=== PATIENT | female | born 1940 | race Caucasian/White ===

== ENCOUNTER → 2017-02-19 | Outpatient (CLI) | payer MEDICARE ==
[2017-02-19 18:29] LABS: ALBUMIN 3.7 GM/DL (3.2-5.2); ALBUMIN/GLOBULIN RATIO 1.19 (1.00-1.93); ALKALINE PHOSPHATASE 71 U/L (45-117); ALT/SGPT 22 U/L (12-78); ANION GAP 8 MEQ/L (8-16); AST/SGOT 19 U/L (15-37); BILIRUBIN,TOTAL 0.3 MG/DL (0.2-1.0); BLOOD UREA NITROGEN 11 MG/DL (7-18); CALCIUM LEVEL 8.9 MG/DL (8.8-10.2); CARBON DIOXIDE LEVEL 29 MEQ/L (21-32); CHLORIDE LEVEL 106 MEQ/L (98-107); CHOLESTEROL LEVEL 202 MG/DL (<200); CREATININE FOR GFR 0.57 MG/DL (0.55-1.02); GLOMERULAR FILTRATION RATE > 60.0 (>39); GLUCOSE, FASTING 120 MG/DL (83-110); POTASSIUM SERUM 4.1 MEQ/L (3.5-5.1); SODIUM LEVEL 143 MEQ/L (136-145); TOTAL PROTEIN 6.8 GM/DL (6.4-8.2); TRIGLYCERIDES LEVEL 146 MG/DL (<150)
== END ==
LOC: M WUC 10:54
PROVIDERS: ATTEND Internal Medicine
DX: I10 Essential (primary) hypertension (principal); R73.01 Impaired fasting glucose; E78.00 Pure hypercholesterolemia, unspecified

== ENCOUNTER → 2017-09-11 | Outpatient (CLI) | payer MEDICARE ==
[2017-09-11 12:16] LABS: MEAN CORPUSCULAR HEMOGLOBIN 29.3 pg (27.0-33.0); MEAN CORPUSCULAR HGB CONC 33.1 g/dl (32.0-36.5); MEAN CORPUSCULAR VOLUME 88.5 fl (80.0-96.0); WHITE BLOOD COUNT 5.9 10^3/uL (4.0-10.0)
[2017-09-11 13:20] LABS: ALBUMIN 3.7 GM/DL (3.2-5.2); ALBUMIN/GLOBULIN RATIO 1.16 (1.00-1.93); ALKALINE PHOSPHATASE 64 U/L (45-117); ALT/SGPT 26 U/L (12-78); ANION GAP 6 MEQ/L (8-16); AST/SGOT 18 U/L (15-37); BILIRUBIN,TOTAL 0.4 MG/DL (0.2-1.0); BLOOD UREA NITROGEN 17 MG/DL (7-18); CALCIUM LEVEL 8.8 MG/DL (8.8-10.2); CARBON DIOXIDE LEVEL 31 MEQ/L (21-32); CHLORIDE LEVEL 106 MEQ/L (98-107); CREATININE FOR GFR 0.65 MG/DL (0.55-1.02); GLOMERULAR FILTRATION RATE > 60.0 (>39); GLUCOSE, FASTING 91 MG/DL (83-110); MAGNESIUM LEVEL 2.3 MG/DL (1.8-2.4); POTASSIUM SERUM 4.3 MEQ/L (3.5-5.1); SODIUM LEVEL 143 MEQ/L (136-145); TOTAL PROTEIN 6.9 GM/DL (6.4-8.2)
== END ==
LOC: M WUC 09:52
PROVIDERS: ATTEND Internal Medicine
DX: J30.9 Allergic rhinitis, unspecified (principal); I10 Essential (primary) hypertension; R73.01 Impaired fasting glucose

== ENCOUNTER → 2018-02-25 | Outpatient (CLI) | payer MEDICARE ==
[2018-02-25 13:32] LABS: ALBUMIN 3.5 GM/DL (3.2-5.2); ALBUMIN/GLOBULIN RATIO 1.21 (1.00-1.93); ALKALINE PHOSPHATASE 66 U/L (45-117); ALT/SGPT 29 U/L (12-78); ANION GAP 6 MEQ/L (8-16); AST/SGOT 18 U/L (7-37); BILIRUBIN,TOTAL 0.2 MG/DL (0.2-1.0); BLOOD UREA NITROGEN 9 MG/DL (7-18); CALCIUM LEVEL 8.8 MG/DL (8.8-10.2); CARBON DIOXIDE LEVEL 29 MEQ/L (21-32); CHLORIDE LEVEL 108 MEQ/L (98-107); CHOLESTEROL LEVEL 180 MG/DL (<200); CHOLESTEROL RISK RATIO 4.186 (<5); CREATININE FOR GFR 0.55 MG/DL (0.55-1.30); GLOMERULAR FILTRATION RATE > 60.0 (>39); GLUCOSE, FASTING 115 MG/DL (70-100); HDL CHOLESTEROL 43 MG/DL (>40); LDL CHOLESTEROL 115.6 MG/DL (<100); MAGNESIUM LEVEL 2.2 MG/DL (1.8-2.4); NON-HDL-C 137 MG/DL; POTASSIUM SERUM 4.1 MEQ/L (3.5-5.1); SODIUM LEVEL 143 MEQ/L (136-145); TOTAL PROTEIN 6.4 GM/DL (6.4-8.2); TRIGLYCERIDES LEVEL 107 MG/DL (<150)
[2018-02-25 13:43] LABS: ESTIMATED AVERAGE GLUCOSE 148 MG/DL (60-110); HEMOGLOBIN A1c 6.8 %
[2018-02-25 20:46] LABS: CREATININE, URINE 49.1 MG/DL; MALB URINE SIEMENS 20.8 MG/L; MAU/CREAT RATIO 42.3 MCG/MG (0.0-30.0)
== END ==
LOC: M WUC 10:07
DX: I10 Essential (primary) hypertension (principal); E78.00 Pure hypercholesterolemia, unspecified; R73.01 Impaired fasting glucose
CPT/HCPCS: 83735

== ENCOUNTER → 2018-09-03 | Outpatient (CLI) | payer MEDICARE ==
[2018-09-03 13:16] LABS: HEMATOCRIT 39.1 % (36.0-47.0); MEAN CORPUSCULAR HEMOGLOBIN 29.3 pg (27.0-33.0); MEAN CORPUSCULAR HGB CONC 33.2 g/dl (32.0-36.5); MEAN CORPUSCULAR VOLUME 88.3 fl (80.0-96.0); PLATELET COUNT, AUTOMATED 427 10^3/uL (150-450); RED BLOOD COUNT 4.43 10^6/uL (4.00-5.40); RED CELL DISTRIBUTION WIDTH 14.4 % (11.5-14.5)
[2018-09-03 13:27] LABS: ALBUMIN 3.5 GM/DL (3.2-5.2); ALBUMIN/GLOBULIN RATIO 1.09 (1.00-1.93); ALKALINE PHOSPHATASE 65 U/L (45-117); ALT/SGPT 33 U/L (12-78); ANION GAP 5 MEQ/L (8-16); AST/SGOT 22 U/L (7-37); BILIRUBIN,TOTAL 0.3 MG/DL (0.2-1.0); BLOOD UREA NITROGEN 13 MG/DL (7-18); CALCIUM LEVEL 8.8 MG/DL (8.8-10.2); CARBON DIOXIDE LEVEL 32 MEQ/L (21-32); CHLORIDE LEVEL 107 MEQ/L (98-107); CHOLESTEROL LEVEL 217 MG/DL (<200); CHOLESTEROL RISK RATIO 5.166 (<5); CREATININE FOR GFR 0.73 MG/DL (0.55-1.30); GLOMERULAR FILTRATION RATE > 60.0 (>39); GLUCOSE, FASTING 115 MG/DL (70-100); HDL CHOLESTEROL 42 MG/DL (>40); LDL CHOLESTEROL 135 MG/DL (<100); MAGNESIUM LEVEL 2.3 MG/DL (1.8-2.4); NON-HDL-C 175 MG/DL; SODIUM LEVEL 144 MEQ/L (136-145); TOTAL PROTEIN 6.7 GM/DL (6.4-8.2); TRIGLYCERIDES LEVEL 198 MG/DL (<150)
[2018-09-03 13:36] LABS: TOTAL 25(OH) VITAMIN D 27.8 NG/ML (30.0-100.0)
[2018-09-03 13:55] LABS: ESTIMATED AVERAGE GLUCOSE 134 MG/DL (60-110); HEMOGLOBIN A1c 6.3 %
[2018-09-03 14:31] LABS: MALB URINE SIEMENS 42.2 MG/L
[2018-09-03 14:33] LABS: MAU/CREAT RATIO 37.7 MCG/MG (0.0-30.0)
== END ==
LOC: M WUC 09:38
DX: J30.9 Allergic rhinitis, unspecified (principal); I10 Essential (primary) hypertension; R73.01 Impaired fasting glucose; E78.00 Pure hypercholesterolemia, unspecified; E55.9 Vitamin D deficiency, unspecified
CPT/HCPCS: 83735

== ENCOUNTER → 2019-01-25 | Outpatient (REF) | payer MEDICARE | LOC: M LAB REF 17:36 | PROVIDERS: ATTEND Physician Assistant | DX: N39.0 Urinary tract infection, site not specified (principal) ==

== ENCOUNTER → 2019-03-18 | Outpatient (CLI) | payer MEDICARE ==
[2019-03-18 12:54] LABS: ALT/SGPT 27 U/L (12-78); BILIRUBIN,TOTAL 0.3 MG/DL (0.2-1.0); BLOOD UREA NITROGEN 9 MG/DL (7-18); CALCIUM LEVEL 9.2 MG/DL (8.8-10.2); CARBON DIOXIDE LEVEL 31 MEQ/L (21-32); CHLORIDE LEVEL 106 MEQ/L (98-107); CHOLESTEROL LEVEL 227 MG/DL (<200); CHOLESTEROL RISK RATIO 4.934 (<5); CREATININE FOR GFR 0.64 MG/DL (0.55-1.30); GLOMERULAR FILTRATION RATE > 60.0 (>39); GLUCOSE, FASTING 132 MG/DL (70-100); HDL CHOLESTEROL 46 MG/DL (>40); LDL CHOLESTEROL 124 MG/DL (<100); MAGNESIUM LEVEL 2.2 MG/DL (1.8-2.4); NON-HDL-C 181 MG/DL; POTASSIUM SERUM 3.9 MEQ/L (3.5-5.1); SODIUM LEVEL 143 MEQ/L (136-145); TOTAL PROTEIN 7.3 GM/DL (6.4-8.2); TRIGLYCERIDES LEVEL 284 MG/DL (<150)
[2019-03-18 13:01] LABS: TOTAL 25(OH) VITAMIN D 36.9 NG/ML (30.0-100.0)
[2019-03-18 13:47] LABS: CREATININE, URINE 88.4 MG/DL; MALB URINE SIEMENS 80.7 MG/L; MAU/CREAT RATIO 91.2 MCG/MG (0.0-30.0)
[2019-03-18 16:13] LABS: HEMOGLOBIN A1c 6.6 %
== END ==
LOC: M WUC 09:59
PROVIDERS: ATTEND Internal Medicine
DX: I10 Essential (primary) hypertension (principal); R73.01 Impaired fasting glucose; M85.80 Other specified disorders of bone density and structure, unspecified site; E78.00 Pure hypercholesterolemia, unspecified

== ENCOUNTER → 2019-04-14 | Outpatient (CLI) | payer MEDICARE ==
--- NOTE | 2019-04-14 13:42 | REPMRS ---
Patient History The patient states she has not had a clinical breast exam in over a year. No known family history of cancer. Benign stereotactic core biopsy of the left breast, September 12, 2011. Benign excisional biopsy of the right breast, 1980. No Hormone Replacement Therapy 3D TOMOSYNTHESIS WAS PERFORMED. Digital Woman Screen Mammo: April 14, 2019 - Exam #: [id number] Bilateral CC and MLO view(s) were taken. Technologist: Teri King, Technologist Prior study comparison: September 26, 2017, digital woman screen mammo performed at [facility] [employer] to [employer]. January 05, 2016, digital woman screen mammo performed at [facility]. FINDINGS: There are scattered fibroglandular densities. There has been no change in the appearance of the mammogram from the prior studies. There is a mild amount of residual fibroglandular tissue which is fairly symmetric. There is no interval development of dominant mass, architectural distortion, or clustered microcalcification suggestive of malignancy. Assessment: BI-RADS/ACR category 1 mammogram. Negative Mammogram. Recommendation Routine screening mammogram in 1 year (for women over age 40). This mammogram was interpreted with the aid of an FDA-approved computer-aided dectection system. Electronically Signed By: Mitchell Berman MD 04/14/19 [id number]
--- NOTE | 2019-04-17 14:36 | DEXA ---
AP SPINE L1 - L4 0.908 -2.3 -0.5 LT FEMUR TOTAL 0.740 -2.1 -0.2 LT NECK 0.643 -2.8 -0.8 RT FEMUR TOTAL 0.749 -2.1 -0.2 RT NECK 0.667 -2.7 -0.6 TOTAL BODY TOTAL OTHER COMMENTS: There is low bone density of the spine. 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 The decreased density of the spine does represent a significant change. The decreased density of the left hip does not represent a significant change. The decreased density of the right hip does represent a significant change. The density of the spine has decreased 11.5% since the initial exam on 11/30/2004. The spine density has decreased 5.4% since the most recent exam on 01/05/2016. The density of the left hip has decreased 13.8% since the initial exam on 11/30/2004. The density of the left hip has decreased 1.3% since the most recent exam on 01/05/2016. The density of the right hip has decreased 12.3% since the initial exam on 11/30/2004. The density of the right hip has decreased 3.2% since the most recent exam on 01/05/2016. FOLLOW-UP: Recommendation for the next bone density exam: 2 years. JOHANA
== END ==
LOC: M WHC 12:53
PROVIDERS: ATTEND Internal Medicine
DX: Z12.31 Encounter for screening mammogram for malignant neoplasm of breast (principal); M85.80 Other specified disorders of bone density and structure, unspecified site

== ENCOUNTER → 2019-09-21 | Outpatient (CLI) | payer MEDICARE ==
[2019-09-21 13:00] LABS: HEMATOCRIT 39.8 % (36.0-47.0); HEMOGLOBIN 13.4 g/dl (12.0-15.5); MEAN CORPUSCULAR HEMOGLOBIN 30.6 pg (27.0-33.0); MEAN CORPUSCULAR HGB CONC 33.7 g/dl (32.0-36.5); MEAN CORPUSCULAR VOLUME 90.9 fl (80.0-96.0); PLATELET COUNT, AUTOMATED 388 10^3/uL (150-450); RED BLOOD COUNT 4.38 10^6/uL (4.00-5.40); WHITE BLOOD COUNT 7.2 10^3/uL (4.0-10.0)
[2019-09-21 13:12] LABS: ALBUMIN 3.5 GM/DL (3.2-5.2); ALT/SGPT 22 U/L (12-78); BILIRUBIN,TOTAL 0.3 MG/DL (0.2-1.0); BLOOD UREA NITROGEN 14 MG/DL (7-18); CARBON DIOXIDE LEVEL 30 MEQ/L (21-32); CHLORIDE LEVEL 105 MEQ/L (98-107); CHOLESTEROL LEVEL 226 MG/DL (<200); CHOLESTEROL RISK RATIO 4.708 (<5); GLOMERULAR FILTRATION RATE > 60.0 (>39); GLUCOSE, FASTING 107 MG/DL (70-100); HDL CHOLESTEROL 48 MG/DL (>40); LDL CHOLESTEROL 145 MG/DL (<100); MAGNESIUM LEVEL 2.2 MG/DL (1.8-2.4); NON-HDL-C 178 MG/DL; POTASSIUM SERUM 3.6 MEQ/L (3.5-5.1); SODIUM LEVEL 142 MEQ/L (136-145); TOTAL PROTEIN 6.5 GM/DL (6.4-8.2); TRIGLYCERIDES LEVEL 167 MG/DL (<150)
[2019-09-21 13:35] LABS: MALB URINE SIEMENS 45.7 MG/L; MAU/CREAT RATIO 30.2 MCG/MG (0.0-30.0)
[2019-09-21 13:39] LABS: HEMOGLOBIN A1c 6.3 %
== END ==
LOC: M WUC 10:25
PROVIDERS: ATTEND Internal Medicine
DX: I10 Essential (primary) hypertension (principal); E78.00 Pure hypercholesterolemia, unspecified; R73.01 Impaired fasting glucose

== ENCOUNTER → 2020-03-26 | Outpatient (CLI) | payer MEDICARE ==
[2020-03-26 13:44] LABS: ALBUMIN 3.6 GM/DL (3.2-5.2); ALT/SGPT 27 U/L (12-78); BILIRUBIN,TOTAL 0.3 MG/DL (0.2-1.0); BLOOD UREA NITROGEN 8 MG/DL (7-18); CALCIUM LEVEL 8.7 MG/DL (8.8-10.2); CARBON DIOXIDE LEVEL 29 MEQ/L (21-32); CHLORIDE LEVEL 107 MEQ/L (98-107); CHOLESTEROL LEVEL 211 MG/DL (<200); CHOLESTEROL RISK RATIO 4.586 (<5); CREATININE FOR GFR 0.64 MG/DL (0.55-1.30); GLOMERULAR FILTRATION RATE > 60.0 (>39); GLUCOSE, FASTING 119 MG/DL (70-100); HDL CHOLESTEROL 46 MG/DL (>40); LDL CHOLESTEROL 132 MG/DL (<100); MAGNESIUM LEVEL 2.2 MG/DL (1.8-2.4); NON-HDL-C 165 MG/DL; POTASSIUM SERUM 4.1 MEQ/L (3.5-5.1); SODIUM LEVEL 142 MEQ/L (136-145); TOTAL PROTEIN 6.8 GM/DL (6.4-8.2); TRIGLYCERIDES LEVEL 167 MG/DL (<150)
[2020-03-26 13:56] LABS: HEMOGLOBIN A1c 6.8 %
== END ==
LOC: M WUC 09:02
PROVIDERS: ATTEND Internal Medicine
DX: I10 Essential (primary) hypertension (principal); E78.00 Pure hypercholesterolemia, unspecified; R73.01 Impaired fasting glucose

== ENCOUNTER → 2020-10-03 | Outpatient (CLI) | payer MEDICARE ==
[2020-10-03 14:14] LABS: HEMATOCRIT 42.3 % (36.0-47.0); HEMOGLOBIN 13.9 g/dl (12.0-15.5); MEAN CORPUSCULAR HEMOGLOBIN 29.8 pg (27.0-33.0); MEAN CORPUSCULAR HGB CONC 32.9 g/dl (32.0-36.5); MEAN CORPUSCULAR VOLUME 90.8 fl (80.0-96.0); PLATELET COUNT, AUTOMATED 456 10^3/uL (150-450); RED BLOOD COUNT 4.66 10^6/uL (4.00-5.40)
[2020-10-03 15:06] LABS: ALBUMIN 3.5 GM/DL (3.2-5.2); ALT/SGPT 30 U/L (12-78); BILIRUBIN,TOTAL 0.3 MG/DL (0.2-1.0); BLOOD UREA NITROGEN 12 MG/DL (7-18); CARBON DIOXIDE LEVEL 29 MEQ/L (21-32); CHLORIDE LEVEL 107 MEQ/L (98-107); CHOLESTEROL LEVEL 222 MG/DL (<200); CHOLESTEROL RISK RATIO 4.625 (<5); GLOMERULAR FILTRATION RATE > 60.0 (>39); GLUCOSE, FASTING 123 MG/DL (70-100); HDL CHOLESTEROL 48 MG/DL (>40); LDL CHOLESTEROL 145 MG/DL (<100); MAGNESIUM LEVEL 2.1 MG/DL (1.8-2.4); NON-HDL-C 174 MG/DL; POTASSIUM SERUM 3.6 MEQ/L (3.5-5.1); SODIUM LEVEL 143 MEQ/L (136-145); TOTAL PROTEIN 6.7 GM/DL (6.4-8.2); TRIGLYCERIDES LEVEL 145 MG/DL (<150)
[2020-10-03 15:08] LABS: TOTAL 25(OH) VITAMIN D 62.9 NG/ML (30.0-100.0)
[2020-10-03 15:44] LABS: CREATININE, URINE 60.8 MG/DL; MALB URINE SIEMENS 41.6 MG/L; MAU/CREAT RATIO 68.4 MCG/MG (0.0-30.0)
== END ==
LOC: M WUC 09:13
PROVIDERS: ATTEND Internal Medicine
DX: I10 Essential (primary) hypertension (principal); R73.01 Impaired fasting glucose; E55.9 Vitamin D deficiency, unspecified; E78.00 Pure hypercholesterolemia, unspecified; J30.9 Allergic rhinitis, unspecified

== ENCOUNTER 2020-11-26 12:13 | Emergency (ER) | payer MEDICARE ==
[~2020-11-26] VITALS: Ht 165.1 cm; Wt 61.4 kg
[2020-11-26] MEDS ORDERED: BENA20TA8 (12:26)
[2020-11-26] MEDS ORDERED: POTA20TA6 (12:26)
[2020-11-26] MEDS ORDERED: AMLO1TAB25 (12:26)
[2020-11-26] MEDS ORDERED: NS 1,000 ML IV SCH (12:36)
[2020-11-26 12:47] LABS: BASO # 0.1 10^3/uL (0.0-0.2); BASO % 0.8 % (0.0-1.0); EOS # 0.1 10^3/uL (0.0-0.5); EOS % 1.2 % (0.0-3.0); HEMATOCRIT 44.4 % (36.0-47.0); HEMOGLOBIN 14.4 g/dl (12.0-15.5); LYMPH # 3.7 10^3/uL (1.5-5.0); LYMPH % 47.9 % (24.0-44.0); MEAN CORPUSCULAR HEMOGLOBIN 29.1 pg (27.0-33.0); MEAN CORPUSCULAR HGB CONC 32.4 g/dl (32.0-36.5); MEAN CORPUSCULAR VOLUME 89.7 fl (80.0-96.0); MONO # 0.6 10^3/uL (0.0-0.8); MONO % 8.2 % (0.0-5.0); NEUTROPHILS # 3.2 10^3/uL (1.5-8.5); NEUTROPHILS % 41.4 % (36.0-66.0); PLATELET COUNT, AUTOMATED 446 10^3/uL (150-450); RED BLOOD COUNT 4.95 10^6/uL (4.00-5.40); WHITE BLOOD COUNT 7.7 10^3/uL (4.0-10.0)
[2020-11-26] MEDS ORDERED: ISOVUE-370 76% 100ML VIAL As Ordered ONE (13:08)
[2020-11-26 13:23] LABS: ALBUMIN 3.8 GM/DL (3.2-5.2); ALT/SGPT 23 U/L (12-78); BILIRUBIN,DIRECT < 0.1 MG/DL (0.0-0.2); BILIRUBIN,TOTAL 0.4 MG/DL (0.2-1.0); LIPASE 143 U/L (73-393); TOTAL PROTEIN 7.3 GM/DL (6.4-8.2)
--- NOTE | 2020-11-26 13:40 | REP ---
INDICATION: abd pian right. COMPARISON: None TECHNIQUE: Axial contrast-enhanced images from the lung bases to the pubic symphysis using 100 cc Isovue 370 intravenous contrast material. Coronal and sagittal reformations obtained. This CT examination was performed using the following dose reduction techniques: Automated exposure control, adjustment of mA and/or kv according to the patient's size, and the use of iterative reconstruction technique. FINDINGS: Lung bases are clear. Liver, spleen, pancreas, left adrenal glands and bilateral kidneys are normal. 1.6 cm enhancing lesion in the right adrenal gland is nonspecific. Cholelithiasis noted without evidence for acute cholecystitis. The enteric system is without obstruction or acute inflammatory process. Scattered colonic diverticula noted without acute diverticulitis. Normal cecum and terminal ileum identified in the right lower quadrant. Pelvis demonstrates normal bladder and evidence for prior hysterectomy. No ascites. No free air. No intraperitoneal or retroperitoneal adenopathy. Abdominal aorta and vasculature appear normal. Musculoskeletal structures are intact and without acute osseous abnormality. IMPRESSION: 1. No acute abdominopelvic pathology appreciated. 2. 1.6 cm right adrenal lesion likely atypical adenoma. Consider outpatient follow-up pre and postcontrast MRI or CT of the abdomen for confirmation. 3. Cholelithiasis without acute cholecystitis. Diverticulosis without acute diverticulitis. <Electronically signed by Aren Vickers > 11/26/20 [id number]
[2020-11-26] MEDS ORDERED: POTASSIUM CHLORIDE 10 MEQ SR TABLET PO ONE (13:45)
[2020-11-26 14:30] VITALS: BP 165/85
--- NOTE | 2020-11-26 14:41 | ECGEPIP ---
[facility] - ED Test Date: 2020-11-26 Pat Name: DAVIDA BROWN Department: Room: - Gender: Female Admitting Supervisor: tarun : 1940 Requested By: Cristela Moran Order Number: [id number] Reading MD: Cristela Moran Measurements Intervals [place] Rate: 74 P: 52 MA: 164 QRS: -46 QRSD: 170 T: 109 QT: 468 QTc: 522 Interpretive Statements SINUS RHYTHM MARKED LEFT AXIS DEVIATION LEFT BUNDLE BRANCH BLOCK No prior Electronically Signed on 11-26-2020 14:41:12 EST by Cristela Moran
--- NOTE | 2020-11-27 08:58 | ED PDOC ---
Post-Departure Follow-Up radiology reprot faxed to Cristela De La Rosa MD Nov 27, 2020 08:58
== END 2020-11-26 14:39 | disposition home or self-care (01) ==
LOC: M ED 12:13
DX: E87.6 Hypokalemia (principal); E27.9 Disorder of adrenal gland, unspecified; K80.20 Calculus of gallbladder without cholecystitis without obstruction; R94.31 Abnormal electrocardiogram [ECG] [EKG]; I10 Essential (primary) hypertension; Z88.6 Allergy status to analgesic agent; Z88.8 Allergy status to other drugs, medicaments and biological substances; Z79.899 Other long term (current) drug therapy
CPT/HCPCS: 74177; 80047; 80076; 83690; 85025; 93005; 96360; 96361; 99284; Q9967

== ENCOUNTER → 2020-12-19 | Outpatient (REF) | payer MEDICARE ==
[~2020-12-19] MED LIST: AMLO1TAB25 PO; BENA20TA8 PO; POTA20TA6 PO
== END ==
LOC: M SFHCPLAZ 08:54
PROVIDERS: ATTEND Internal Medicine
DX: D35.01 Benign neoplasm of right adrenal gland (principal); I10 Essential (primary) hypertension

== ENCOUNTER → 2020-12-19 | Outpatient (CLI) | payer MEDICARE ==
[~2020-12-19] MED LIST changes: +AMLO1TAB25; -AMLO1TAB25 PO; +BENA20TA8; -BENA20TA8 PO; +POTA20TA6; -POTA20TA6 PO
[2020-12-19 10:41] LABS: BLOOD UREA NITROGEN 9 MG/DL (7-18); CALCIUM LEVEL 9.2 MG/DL (8.8-10.2); CARBON DIOXIDE LEVEL 30 MEQ/L (21-32); CHLORIDE LEVEL 105 MEQ/L (98-107); CREATININE FOR GFR 0.62 MG/DL (0.55-1.30); GLOMERULAR FILTRATION RATE > 60.0 (>39); GLUCOSE, FASTING 129 MG/DL (70-100); MAGNESIUM LEVEL 2.1 MG/DL (1.8-2.4); POTASSIUM SERUM 3.4 MEQ/L (3.5-5.1); SODIUM LEVEL 143 MEQ/L (136-145)
== END ==
LOC: M LAB 09:24
PROVIDERS: ATTEND Internal Medicine
DX: D35.01 Benign neoplasm of right adrenal gland (principal); I10 Essential (primary) hypertension
CPT/HCPCS: 36415; 80048; 82088; 83735; G0463

== ENCOUNTER → 2020-12-20 | Outpatient (CLI) | payer MEDICARE ==
[~2020-12-20] MED LIST changes: -AMLO1TAB25; +AMLO1TAB25 PO; -BENA20TA8; +BENA20TA8 PO; -POTA20TA6; +POTA20TA6 PO
== END ==
LOC: M LAB 10:49
PROVIDERS: ATTEND Internal Medicine
DX: D35.01 Benign neoplasm of right adrenal gland (principal)

== ENCOUNTER → 2021-01-12 | Outpatient (CLI) | payer MEDICARE | LOC: M LABSMTC 11:02 | PROVIDERS: ATTEND Anesthesiology | DX: Z01.812 Encounter for preprocedural laboratory examination (principal); Z20.822 Contact with and (suspected) exposure to COVID-19 ==

== ENCOUNTER 2021-01-17 08:00 | Day surgery (SDC) | payer MEDICARE ==
[~2021-01-17] VITALS: Ht 165.1 cm; Wt 58.5 kg
[~2021-01-17 08:00] MED LIST changes: +LR 1,000 ML IV ONE; +ceFAZolin SOD 1 GM in D5W MINI-BAG PLUS 50 ML IV ONE
--- OUTSIDE RECORDS SUMMARY | 2021-01-17 08:05 | CCD ---
Author Author [facility] Organization [facility] Address Unknown Phone Unavailable Care Team Providers Care Bar Machine Operator Name Role Phone Kelvin Molina Unavailable PROBLEMS Type Condition ICD9-CM Code [id number] Code Onset Dates Condition S tatus SNOMED Code Notes Problem Elevated fasting blood sugar R73.01 Active 390 [id number] Fasting glucose has been variably elevated and most recently was 107 with a hemoglobin A1c of 6.3% in August 2019, 119 with a hemoglobin A1c of 6.8% in March 2020, 123 with a hemoglobin A1c of 6% in September 2020. She will be working on dietary restriction to better achieve glucose control. Urine microalbumin was borderline elevated at 30 in August 2019, 68 in September 2020. Consider adding metformin in the future. Problem Osteoarthritis M19.90 Active [id number] Has min or symptoms. She takes Tylenol arthritis 2 pills twice daily. Problem Osteopenia M85.80 Active 879056243 Her last DE XA was in March 2019 and revealed osteopenia of the spine with a declining T score of -2.3 in the spine. She is treating that with weight bearing exercise and vitamin D supplementation. I'm holding off on starting bisphosphonate therapy. She does not fall. Problem Hypercholesterolemia E78.00 Active 69307878 He r lipid profile is intermittently abnormal. She has a more elevated LDL of 145 in September 2020.. She is working on diet and exercise in that regard. 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 She had an injection in the past and can always pursue that in the future. Problem Left bundle branch block I44.7 Active 0170763 2 She had left bundle branch block diagnosed in 1997 on a preoperative and this is again seen on EKG in November 2020. An echocardiogram was unremarkable in 1997 but I have ordered another in anticipation of her gallbladder surgery in December 2020. Problem Allergic rhinitis J30.9 Active 70622473 Advis ed to continue to use her intranasal steroid or uuwt-wjy-gbmloua antihistamine seasonally. Problem Hypertension I10 Active 77593353 She is on benzapril and amlodipine. HCTZ was stopped in 02/2014. She still requires potassium supplementation however. Her blood pressure has been intermittently elevated here is normal today. She has a home blood pressure cuff and she will continue home monitoring. Blood pressure is reasonably controlled today, although was quite elevated in the emergency department when she was uncomfortable. I've ordered another echocardiogram because of her known left bundle branch block and soft systolic murmur, in anticipation of her gallbladder surgery in December 2020. Problem Vitamin D deficiency E55.9 Active 55089893 Sh latoya is off Drisdol. Vitamin D level was most recently 63 in September 2020 on her current level of qnvw-upg-qnsprug vitamin D supplementation. ALLERGIES Allergen (clinical drug ingredient) Drug/Non Drug Allergy do cumented on EMR Reaction Allergy Type Onset Date Status Codeine Phosphate (For Allergies Use Only) Nausea/Vomiting Drug Allergy Active Nausea/Vomiting Drug Allergy Active meperidine Demerol([facility] Code:[address]-93) Nausea/Vomiting Drug Aller gy Active ENCOUNTERS from 1940 to 2020-12-21 Encounter Location Date Provider Diagnosis [address] [address] Nov, Kelvin Molina Pre-op evaluation Z01.818 ; History of c holecystitis Z87.19 ; Hypertension I10 ; Adenoma of right adrenal gland D35.01 and Left bundle branch block I44.7 IMMUNIZATIONS Vaccine Route Administration Date Status Influenza (18 yrs & older) Flublok IM Intramuscular Sep 22, 2019 Administered Influenza (18 yrs & older) Flublok IM Intramuscular Sep 09, 2018 Administered Influenza (High Dose 65 & up) IM Intramuscular Sep 13, 2017 A dministered Influenza (High Dose 65 & up) IM Intramuscular Aug 29, 2016 A dministered Pneumococcal Adult 0.5mL (Pneumovax 23) Unknown 2007 Administered Pneumococcal 0.5mL (Prevnar 13) IM Intramuscular Nov 29, 2015 Administered Influenza (Pharmacy Given) Unknown Jul 26, 2020 Admin istered TD Adult 0.5mL (Tetanus) Unknown Aug 25, 2010 Adminis tered Influenza (6mo & up) Fluzone Unknown Sep 16, 2015 Adm inistered Influenza (6mo & up) Fluzone Unknown Sep 09, 2014 Adm inistered SOCIAL HISTORY Tobacco Use: Social History Observation Description Date Details (start date - stop date) Never Smoker Sex Assigned At : Social History Observation Description Sex Assigned At Unknown Education: Question Answer Notes Level of Education: Grade School 8 th grade Audit Question Answer Notes Total Score: 0 Interpretation: Alcohol Education Language: Question Answer Notes Languages spoken: Chilean Lutheran: Question Answer Notes Lutheran 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 No Have you ever had an STD? No Drug and Alcohol Question Answer Notes Total Score: 0 Interpretation: No problems reported Alcohol Screening: Question Answer Notes Did you have a drink containing alcohol in the past year? No Points 0 Interpretation Negative Tobacco Use: Question Answer Notes Are you a: never smoker never smoker REASON FOR REFERRAL No Information VITAL SIGNS Weight 135.0 lbs Nov, Height 65.0 in Nov, BMI 22.46 kg/m2 Nov, Heart Rate 91 /min Nov, Respiratory Rate 18 /min Nov, Temperature 98.4 degrees Fahrenheit Nov, Oximetry 98% Nov, Blood pressure systolic 122 mm Hg Nov, Blood pressure diastolic 80 mm Hg Nov, MEDICATIONS Medication SIG (Take, Route, Frequency, Duration) Notes Start Da te End Date Status AmLODIPine Besylate 10 mg 1 tablet Orally Once a day for 90 Active Benazepril HCl 20 mg 1 tablet Orally Once a day for 90 Active Klor-Con M20 20 MEQ as directed Orally Take 1 ta blet daily on /Sat/Sat, 2 tablets daily on // for 90 days Active Calcium + D 600-200 MG-UNIT 1 tablet with food Orally Once a day for 30 day(s) Active Vitamin D 2000 UNIT as directed Orally daily Feb, Active PROCEDURES No Information RESULTS Component Value Reference Range Basic Metabolic Profile (BMP) Reviewed date:12/19/2020 17:02:52 Interpretation: Performing Lab:[facility] [address] [address] , ,[place] [address] GLUCOSE, FASTING 129 70-100 BLOOD UREA NITROGEN 9 7-18 CREATININE FOR GFR 0.62 0.55-1.30 GLOMERULAR FILTRATION RATE > 60.0 >39 SODIUM LEVEL 143 136-145 POTASSIUM SERUM 3.4 3.5-5.1 CHLORIDE LEVEL 105 98-107 CARBON DIOXIDE LEVEL 30 21-32 CALCIUM LEVEL 9.2 8.8-10.2 MAGNESIUM LEVEL Reviewed date:12/19/2020 16:44:51 Interpretation: Performing Lab:[facility] [id number] , ,[place] [address] MAGNESIUM LEVEL 2.1 1.8-2.4 REASON FOR VISIT Pre-operative clearance for laproscopic cholecystectomy preformed by Dr. Silsa messer at [facility] on January 17, 2021 under anesthesia. DX: K80.20 MEDICAL (GENERAL) HISTORY Type Description Date Medical History Hypercholesterolemia Medical History Vitamin D deficiency Medical History Elevated fasting blood sugar Medical History Osteopenia Medical History Left bundle branch block Medical History Osteoarthritis Medical History Allergic rhinitis Surgical History breast lump removed benign right age 31 Surgical History tonsillectomy 1972 Surgical History Breast biopsy-Dr Linares 03/15/1973 Surgical History Bladder suspension 1976 Surgical History rotator cuff tear repair right 1980 Surgical History sinus surgery 1981 Surgical History partial hysterectoomy-uterus only 1986 Surgical History carpel tunnel surgery to rig ht hand--had ulnar nerve transposition at that time 03/15/1998 Surgical History hemorrhoid surgery 03/11/1996 Surgical History sinus surgery (Endoscopic Sinus Surgery [facility]SS) 02/21/1999 Surgical History colonoscopy no polyps 2006 Surgical History CAt 4 mammogram calcifications benign bi opsy 2010 Surgical History anterior wall repair-vagina 03/15/2014 Surgical History Colonoscopy 2013 Surgical History Lap cholecystectomy-Dr. Ch 021 Hospitalization History [facility] ED-Abdominal pain 11/26/2020 Goals Section No Information Health Concerns No Information MEDICAL EQUIPMENT No Information MENTAL STATUS No Information FUNCTIONAL STATUS No Information ASSESSMENTS Encounter Date Diagnosis Assessment Notes Treatment Notes Treatm ent Clinical Notes Nov, Pre-op evaluation (ICD-10 - Z01.818) On the basis of this preoperative evaluation, including interview and physical examination, preoperative testing, and my knowledge of the patient, I find the patient to be medically optimized for the forthcoming surgical procedure, provided her echocardiogram is unremarkable. Risk for cardiac morbidity and mortality for this procedure is less than 5%, in this moderate risk patient who will be undergoing a moderate risk procedure. The patient has no major, minor or intermediate clinical predictors of increased perioperative cardiovascular risk. Medications to hold prior to surgery: None, from my standpoint. There is no history suggestive of sleep apnea. I've ordered an echocardiogram to reassess her left bundle branch block and heart murmur Nov, History of cholecystitis (ICD-10 - Z87.1 9) She had right upper quadrant pain in early November [address]. [address] scan showed cholelithiasis without evidence for acute cholecystitis, she probably did have an episode of cholecystitis. She is now scheduled for laparoscopic cholecystectomy, as her gallbladder has multiple stones. Nov, Hypertension (ICD-10 - I10) She is on be nzapril and amlodipine. HCTZ was stopped in 02/2014. She still requires potassium supplementation however. Her blood pressure has been intermittently elevated here is normal today. She has a home blood pressure cuff and she will continue home monitoring. Blood pressure is reasonably controlled today, although was quite elevated in the emergency department when she was uncomfortable. I've ordered another echocardiogram because of her known left bundle branch block and soft systolic murmur, in anticipation of her gallbladder surgery in December 2020. Nov, Adenoma of right adrenal gland (ICD-10 - D35.01) She has an incidentally discovered right adrenal adenoma on CT scan. Because of her low potassium level and hypertension, I have ordered an evaluation for hyperaldosteronism. Nov, Left bundle branch block (ICD-10 - I44.7 ) She had left bundle branch block diagnosed in 1997 on a preoperative and this is again seen on EKG in November 2020. An echocardiogram was unremarkable in 1997 but I have ordered another in anticipation of her gallbladder surgery in December 2020. PLAN OF TREATMENT Medication Medication Name Sig Start Date Stop Date Klor-Con M20 20 MEQ as directed Orally Take 1 ta blet daily on /Sat/Sat, 2 tablets daily on // for 90 days Treatment Notes Test Name Order Date ALDOSTERONE 2020-12-21 ALDOSTERONE/RENIN RATIO 2020-12-21 Next Appt Details Keep scheduled appointment Reason: Provider Name:Kelvin Molina, 2021 10 :30:00 AM, [address] [place], [address], Insurance Providers Payer Name Payer Address Payer Phone Insured Name Patient Relati onship to Insured Coverage Start Date Coverage End Date [employer] HE[employer] CARE OPTIONS [facility] CLAIM DIV [address] [facility] [address] DAVIDA BROWN self MEDICARE Part A and B [address] [facility] [address] [phone] DAVIDA RBOWN self
--- OUTSIDE RECORDS SUMMARY | 2021-01-17 08:05 | CCD | Continuity of Care Document ---
Author Author Vanesa CH MD Organization Unknown Address [address] [address] Phone [phone] Care Team Providers Care Forensic Technician Name Role Phone Kelvin Molina M.D. AUTM [phone] Problems Active Problems Provider Date Essential hypertension Silas Ch JR, MD Onset: 12/07/19 21 Social History Type Date Description Comments Sex Unknown ETOH Use Rarely Tobacco Use Start: Unknown Denies Smoking Recreational Drug Use Denies Drug Use Allergies, Adverse Reactions, Alerts Active Allergies Reaction Severity Comments Date Demerol VOMITING 12/07/2020 Medications Active Medications SIG Qnty Indications Ordering Provide r Date Amlodipine Besylate 10mg Tablets 1 qd Unknown Benazepril HCL 20mg Tablets 1 qd Unknown Potassium Chloride Olivia ER 20Meq Tablets ER 1 qd Unknown Vitamin D3 25mcg (1000 Ut) Tablets 1 by mouth qd Unknown Probiotic Capsules 1 by mouth every day Unknown Calcium 600 600mg Tablets 1 q d Unknown Immunizations Description No Information Available Vital Signs Date Vital Result Comment 12/07/2020 1:10pm BP Systolic 155 mmHg BP Diastolic 90 mmHg Height 65 inches 5'5" Weight 132.50 lb BMI (Body Mass Index) 22.0 kg/m2 [place] Body Weight 125 lb Weight 60.102 kg BSA (Body Surface Area) 1.66 m2 Results Description No Information Available Procedures Description No Information Available Medical Devices Description No Information Available Encounters Description No Information Available Assessments Description No Information Available Plan of Treatment No Information Available Functional Status Description No Information Available Mental Status Description No Information Available Referrals Description No Information Available
--- OUTSIDE RECORDS SUMMARY | 2021-01-17 08:05 | CCD ---
Author Author [facility] Organization [facility] Address Unknown Phone Unavailable Care Team Providers Care Cleaning Attendant Name Role Phone Kelvin Molina Unavailable PROBLEMS Type Condition ICD9-CM Code ATR17-ER Code Onset Dates Condition S tatus SNOMED Code Notes Problem Elevated fasting blood sugar R73.01 Active 390 572593 Fasting glucose has been variably elevated and [...] in the future. Problem Osteoarthritis M19.90 Active 689812618 Has min or symptoms. She takes Tylenol arthritis 2 pills twice daily. Problem Osteopenia M85.80 Active 977513029 Her last DE XA was in March 2019 and revealed osteopenia of the spine with a declining T score of -2.3 in the spine. She is treating that with weight bearing exercise and vitamin D supplementation. I'm holding off on starting bisphosphonate therapy. She does not fall. Problem Hypercholesterolemia E78.00 Active 07718386 He r lipid profile is intermittently abnormal. She has a more elevated LDL of 145 in September 2020.. She is working on diet and exercise in that regard. 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 She had an injection in the past and can always pursue that in the future. Problem Left bundle branch block I44.7 Active 1832538 2 She had left bundle branch block diagnosed in 1997 on a preoperative and this is again seen on EKG in November 2020. An echocardiogram was unremarkable in 1997 but I have ordered another in anticipation of her gallbladder surgery in December 2020. Problem Allergic rhinitis J30.9 Active 93796694 Advis ed to continue to use her intranasal steroid or simq-sla-yyohkvl antihistamine seasonally. Problem Hypertension I10 Active 88810891 She is on benzapril and amlodipine. HCTZ [...] 2020. Problem Vitamin D deficiency E55.9 Active 95376681 Sh e is off Drisdol. Vitamin D level was most recently 63 in September 2020 on her current level of ywpl-srt-ynqxdtq vitamin D supplementation. ALLERGIES Allergen (clinical drug ingredient) Drug/Non Drug Allergy do cumented on EMR Reaction Allergy Type Onset Date Status Codeine Phosphate (For Allergies Use Only) Nausea/Vomiting Drug Allergy Active Nausea/Vomiting Drug Allergy Active meperidine Demerol([facility] Code:[address]-48) Nausea/Vomiting Drug Aller gy Active ENCOUNTERS from 1940 to 2020-12-19 Encounter Location Date Provider Diagnosis [address] [address] Nov, [facility] IMMUNIZATIONS Vaccine Route Administration Date Status Influenza (18 yrs & older) Flublok IM Intramuscular Sep 09, 2018 Administered Influenza (High Dose 65 & up) IM Intramuscular Sep 13, 2017 A dministered Influenza (High Dose 65 & up) IM Intramuscular Aug 29, 2016 A dministered Influenza (Pharmacy Given) Unknown Jul 26, 2020 Admin istered Pneumococcal Adult 0.5mL (Pneumovax 23) Unknown 2007 Administered Pneumococcal 0.5mL (Prevnar 13) IM Intramuscular Nov 29, 2015 Administered Influenza (18 yrs & older) Flublok IM Intramuscular Sep 22, 2019 Administered TD Adult 0.5mL (Tetanus) Unknown Aug 25, [...] Education Language: Question Answer Notes Languages spoken: Yi Restoration: Question Answer Notes Restoration 08 Synagogue rastafarian Sexual Hx: Question Answer Notes Had sex [...] REASON FOR REFERRAL No Information VITAL SIGNS No information MEDICATIONS Medication SIG (Take, Route, Frequency, Duration) Notes Start Da te End Date Status AmLODIPine Besylate 10 mg 1 tablet Orally Once a day for 90 Active Benazepril HCl 20 mg 1 tablet Orally Once a day for 90 Active Klor-Con M20 20 MEQ as directed Orally Take 1 ta blet daily on /Sat/Sat, 2 tablets daily on / for 90 days Active Calcium + D 600-200 MG-UNIT 1 tablet with food Orally Once a day for 30 day(s) Active Vitamin D 2000 UNIT as directed Orally daily Feb, Active PROCEDURES No Information RESULTS No Results REASON FOR VISIT Aldosterone/renin ratio MEDICAL (GENERAL) HISTORY Type Description Date Medical [...] Surgical History rotator cuff tear repair right 1979 Surgical History sinus surgery 1981 Surgical History [...] History Lap cholecystectomy-Dr. Ch 021 Hospitalization History [facility] ED-Abdominal pain 11/26/2020 Goals Section No Information Health Concerns No Information MEDICAL EQUIPMENT No Information MENTAL STATUS No Information FUNCTIONAL STATUS No Information ASSESSMENTS No Information PLAN OF TREATMENT Medication Medication Name Sig Start Date Stop Date Klor-Con M20 20 MEQ as directed Orally Take 1 ta blet daily on //Sat/Sat, 2 tablets daily on // for 90 days Next Appt Details Provider Name:Kelvin Molina, 2021 10 :30:00 AM, [address] [place] [address], [phone], Insurance Providers Payer Name Payer Address Payer Phone Insured Name Patient Relati onship to Insured Coverage Start Date Coverage End Date MEDICARE Part A and B [address] [facility] [id number] [phone] DAVIDA BROWN [facility] HEALTH CARE OPTIONS [facility] CLAIM [facility] [address] [facility] [phone] DAVIDA BROWN
--- OUTSIDE RECORDS SUMMARY | 2021-01-17 08:05 | CCD | Continuity of Care Document ---
Author Author Vanesa AMOS Organization Unknown Address [address] [place] [address] [place] [address] Phone [phone] Care Team Providers Care Coordinator Of Online Programs Name Role Phone Kelvin Molina MD [facility] [phone] Problems Description No Information Available Social History Type Date Description Comments Sex Unknown Allergies, Adverse Reactions, Alerts Description No Information Available Medications Description No Information Available Immunizations Description No Information Available Vital Signs Description No Information Available Results Description No Information Available Procedures Date Code Description Status 12/20/2020 20425 Echocardiogram 2-D Doppler Color Completed Medical Devices Description No Information Available Encounters Description No Information Available Assessments Date Code Description Provider 12/20/2020 I44.7 Left bundle-branch block, unspec ified ECHO Plan of Treatment No Information Available Functional Status Description No Information Available Mental Status Description No Information Available Referrals Description No Information Available
--- OUTSIDE RECORDS SUMMARY | 2021-01-17 08:06 | CCD ---
Author Author [facility] Organization [facility] Address Unknown Phone Unavailable Support Name Relationship Address Phone MENDEZYESENIA KRISHNAMURTHYARA Next Of Kin [facility] [address] [place] [address] RE Next Of Kin Unknown Unavailable KEVINCLYDE PERRY Next Of Kin [address] [place] [address] UNEMPLOYED Next Of Kin UN UN, UN UN UE Next Of Kin Unknown Unavailable ALEXANDRA BROWN Next Of Kin [address] [facility] [address] [place] [address] Mery Mendez [facility] [address] [place] [address] Re-disclosure Warning The records that you are about to access may contain information from federally-assisted alcohol or drug abuse programs. If such information is present, then the following federally mandated warning applies: This information has been disclosed to you from records protected by federal confidentiality rules (42 CFR part 2). The federal rules prohibit you from making any further disclosure of this information unless further disclosure is expressly permitted by the written consent of the person to whom it pertains or as otherwise permitted by 42 CFR part 2. A general authorization for the release of medical or other information is NOT sufficient for this purpose. The Federal rules restrict any use of the information to criminally investigate or prosecute any alcohol or drug abuse patient.The records that you are about to access may contain highly sensitive health information, the redisclosure of which is protected by Article 27-F of the [facility] Public Health law. If you continue you may have access to information: Regarding HIV / AIDS; Provided by facilities licensed or operated by the [facility] Office of Mental Health; or Provided by the [facility] Office for People With Developmental Disabilities. If such information is present, then the following [facility] mandated warning applies: This information has been disclosed to you from confidential records which are protected by state law. State law prohibits you from making any further disclosure of this information without the specific written consent of the person to whom it pertains, or as otherwise permitted by law. Any unauthorized further disclosure in violation of state law may result in a fine or prison sentence or both. A general authorization for the release of medical or other information is NOT sufficient authorization for further disc losure. Allergies and Adverse Reactions Type Description Substance Reaction Status Data Source(s ) Drug allergy Demerol Meperidine Nausea/Vomiting Active eCW1 ( [facility]) Aspir-81 Aspir-81 Aspir-81 Nausea/Vomiting Active eCW1 ([facility]) Family History Family Member Name Family Member Gender Family Member Status Date o f Status Description Data Source(s) Unknown Unknown Problem MEDENT ([facility]) Encounters Encounter Providers Location Date Indications Data Source(s ) [place] [address] [facility] [place] [address] 12/19/2020 12:00:00 AM EST eCW1 ([facility]) Unknown [address] [facility] [address] [place] [address] 12/19/2020 12:00:00 AM EST eCW1 ([facility]) [place] [address] [facility] [place] [address] 10/05/2020 12:00:00 AM EST eCW1 ([facility]) Unknown [address] [facility] [address] [place] [address] 08/31/2020 12:00:00 AM EDT eCW1 ([facility]) [facility] [place] [address] [facility] [place] [address] 03/29/2020 12:00:00 AM EDT eCW1 ([facility]) Immunizations Vaccine Date Status Description Data Source(s) IIV3. This is one of two codes replacing CVX 15, which is being retired. 07/26/2020 10:39:00 AM EDT completed eCW1 ([facility]) IIV3. This is one of two codes replacing CVX 15, which is being retired. 07/26/2020 10:39:00 AM EDT completed eCW1 ([facility]) IIV3. This is one of two codes replacing CVX 15, which is being retired. 07/26/2020 10:39:00 AM EDT completed eCW1 ([facility]) Insurance Providers Payer name Policy type / Coverage type Policy ID Covered green party ID Covered green party's relationship to ward Policy Ward Plan Information MEDICARE [id number] SP [id number] [id number] [facility] OPTIONS [id number] SP [id number] ANS-Medicare Part B [id number] ANSI-Commercial [id number] [facility] Options [facility] Part B [id number] Self [id number] Medicare Natl Gov't Servi Medicare Primary [id number] Self [id number] [facility] Options [facility] Part B [id number] Self [id number] Medicare Natl Gov't Servi Medicare Primary [id number] Self [id number] ANSI-Medicare Part B [id number] ANSI-Commercial [id number] ANSI-Commercial [id number] ANS-Medicare Part B [id number] MEDICARE [id number] SP [id number] B MEDICARE [id number] SP [id number] D [employer] Medigap Part B Self [place] Self BCBS OF [place] 306/806 [id number] SP [id number] Problems, Conditions, and Diagnoses Code Display Name Description Problem Type Effective Dates Data Source(s) 70005596 Essential hypertension Essential hypertension Problem 12/07/2020 12:00:00 AM EST MEDENT ([facility], ) Surgeries/Procedures Procedure Description Date Indications Data Source(s) ECHO TTHRC R-T 2D W/WOM-MODE COMPL SPEC&COLR DOP 12/20 12:00:00 AM EST MEDENT ([facility]) Office Visit, Est Pt., Level 2 FC 03/29/2020 12:00:00 AM EDT eCW1 ([facility]) Office Visit, Est Pt., Level 4 PC 03/29/2020 12:00:00 AM EDT eCW1 ([facility]) Results ID Date Data Source [id number] 01/12/2021 11:00:00 AM EST [facility] Name Value Range Interpretation Code Description Data Belkis rce(s) Supporting Document(s) SARS coronavirus 2 RNA Not Detected [facility] [place] This lab was ordered by [facility] and reported by [facility]. ID Date Data Source MAGNESIUM LEVEL 12/19/2020 12:00:00 AM EST eCW1 ([facility]) Name Value Range Interpretation Code Description Data Belkis rce(s) Supporting Document(s) 2.1 1.8-2.4 MAGNESIUM LEVEL eCW1 ([facility]) ID Date Data Source Basic Metabolic Profile (BMP) 12/19/2020 12:00:00 AM EST eCW 1 ([facility]) Name Value Range Interpretation Code Description Data Belkis rce(s) Supporting Document(s) 9 7-18 BLOOD UREA NITROGEN eCW1 ([facility]) 129 70-100 GLUCOSE, FASTING eCW1 ([facility]) 143 136-145 SODIUM LEVEL eCW1 ([facility]) 3.4 3.5-5.1 POTASSIUM SERUM eCW1 ([facility]) 0.62 0.55-1.30 CREATININE FOR GFR eCW1 ([facility]) > 60.0 >39 GLOMERULAR FILTRATION RATE eCW 1 ([facility]) 9.2 8.8-10.2 CALCIUM LEVEL eCW1 ([facility]) 30 21-32 CARBON DIOXIDE LEVEL eCW1 ([facility]) 105 98-107 CHLORIDE LEVEL eCW1 ([facility]) Procedure Social History Code Duration Value Status Description Data Source(s ) Smoking 12/19/2020 12:00:00 AM EST Never Smoker completed Never S moker eCW1 ([facility]) Smoking 12/19/2020 12:00:00 AM EST Never Smoker completed Never S moker eCW1 ([facility]) Smoking 10/05/2020 12:00:00 AM EST Never Smoker completed Never S moker eCW1 ([facility]) Smoking 03/29/2020 12:00:00 AM EDT Never Smoker completed Never S moker eCW1 ([facility]) Vital Signs ID Date Data Source UNK Name Value Range Interpretation Code Description Data Source(s) Diastolic blood pressure 80 mm[Hg] 80 mm[Hg] eCW1 ([facility]) Systolic blood pressure 122 mm[Hg] 122 mm[Hg] e CW1 ([facility]) Body temperature 98.4 [degF] 98.4 [degF] eCW1 ( [facility]) Respiratory rate 18 /min 18 /min eCW1 ([facility]) Heart rate 91 /min 91 /min eCW1 ([facility]) Body mass index (BMI) [Ratio] 22.46 kg/m2 22.46 kg/m2 W1 ([facility]) Body height 65.0 [in_i] 65.0 [in_i] eCW1 ([facility]) Body weight 135.0 [lb_av] 135.0 [lb_av] eCW1 ([facility]) Body surface area Derived from formula 1.66 m2 1.66 m2 [facility] ([facility]) Body weight 60.102 kg 60.102 kg [facility] ([facility]) [place] body weight 125 [lb_av] 125 [lb_av] MEDEN T ([facility]) Body mass index (BMI) [Ratio] 22.0 kg/m2 22.0 k g/m2 [facility] ([facility]) Body weight 132.50 [lb_av] 132.50 [lb_av] MEDEN T ([facility]) Body height 65 [in_i] 65 [in_i] [facility] ([facility]) 5'5" Diastolic blood pressure 90 mm[Hg] 90 mm[Hg] [facility] ([facility]) Systolic blood pressure 155 mm[Hg] 155 mm[Hg] [facility] Diastolic blood pressure 76 mm[Hg] 76 mm[Hg] eCW1 ([facility]) Systolic blood pressure 116 mm[Hg] 116 mm[Hg] e CW1 ([facility]) Body temperature 98.2 [degF] 98.2 [degF] eCW1 ( [facility]) Respiratory rate 18 /min 18 /min eCW1 ([facility]) Heart rate 77 /min 77 /min eCW1 ([facility]) Body mass index (BMI) [Ratio] 23.26 kg/m2 23.26 kg/m2 eCW1 ([facility]) Body height 65.0 [in_i] 65.0 [in_i] eCW1 ([facility]) Body weight 139.8 [lb_av] 139.8 [lb_av] eCW1 ([facility]) Diastolic blood pressure 78 mm[Hg] 78 mm[Hg] eCW1 ([facility]) Systolic blood pressure 136 mm[Hg] 136 mm[Hg] e CW1 ([facility]) Body temperature 98.0 [degF] 98.0 [degF] eCW1 ( [facility]) Respiratory rate 18 /min 18 /min eCW1 ([facility]) Heart rate 78 /min 78 /min eCW1 ([facility]) Body mass index (BMI) [Ratio] 23.56 kg/m2 23.56 kg/m2 eCW1 ([facility]) Body height 65.0 [in_us] 65.0 [in_us] eCW1 ([facility]) Body weight Measured 141.6 [lb_av] 141.6 [lb_av ] eCW1 ([facility])
[2021-01-17] MEDS ORDERED: BUPIVACAINE/EPIN 0.25% 30 ML VIAL As Ordered ONE (11:07)
[2021-01-17] MEDS ORDERED: propofoL 200 MG/20 ML VIAL As Ordered ONE (11:19)
[2021-01-17] MEDS ORDERED: SUGAMMADEX SODIUM 500 MG/5 ML VIAL (BRIDION) As Ordered ONE (11:19)
[2021-01-17] MEDS ORDERED: ONDANSETRON 4MG/2ML VIAL As Ordered ONE (11:19)
[2021-01-17] MEDS ORDERED: LIDOCAINE 2% 100MG/5ML SDV (FOR ANES.) As Ordered ONE (11:19)
[2021-01-17] MEDS ORDERED: MIDAZOLAM INJ 2MG/2ML VIAL (J2250 PER 1MG) As Ordered ONE (11:19)
[2021-01-17] MEDS ORDERED: ROCURONIUM BROMIDE 50 MG/5 ML VIAL As Ordered ONE (11:19)
[2021-01-17] MEDS ORDERED: fentaNYL 250 MCG/5 ML INJECTION (J3010) As Ordered ONE (11:19)
[2021-01-17] MEDS ORDERED: dexameTHASONE 4 MG/ML 1ML VIAL (J1100 PER 1MG) As Ordered ONE (11:19)
[2021-01-17] MEDS ORDERED: METOCLOPRAMIDE INJ 10MG/2ML VIAL (J2765 PER 1) As Ordered ONE (11:19)
[2021-01-17] MEDS ORDERED: ACETAMINOPHEN 1000MG 100ML IV BTL (OFIRMEV) (J0131 PER 10MG) As Ordered ONE (11:32)
[2021-01-17] MEDS ORDERED: ePHEDrine SULFATE 25 MG/5 ML(5MG/ML) SYRINGE As Ordered ONE (11:42)
[2021-01-17] MEDS ORDERED: PERCOCET 5MG/325MG TAB As Ordered ONE (12:37)
[2021-01-17] MEDS ORDERED: PERCOCET 5MG/325MG TAB PO PRN (13:00)
[2021-01-17] MEDS ORDERED: METOCLOPRAMIDE INJ 10MG/2ML VIAL (J2765 PER 1) IV PRN (13:00)
[2021-01-17] MEDS ORDERED: fentaNYL 100 MCG/2 ML INJECTION (J3010) IV PRN (13:00)
[2021-01-17] MEDS ORDERED: NS 1,000 ML IV SCH (13:00)
[2021-01-17] MEDS ORDERED: traMADol 50 MG TAB PO PRN ×2 (13:00)
[2021-01-17] MEDS ORDERED: LR 1,000 ML IV SCH (13:00)
[2021-01-17] MEDS ORDERED: ONDANSETRON 4MG/2ML VIAL IV PRN (13:00)
--- NOTE | 2021-01-17 13:12 | RO ---
OPERATIVE NOTE DATE OF OPERATION: 01/17/2021 PREOPERATIVE DIAGNOSIS: Symptomatic gallstones. POSTOPERATIVE DIAGNOSIS: Symptomatic gallstones. PROCEDURE: Laparoscopic cholecystectomy. SURGEON: Silas Ch MD [employer]ER: ANESTHESIA: General endotracheal anesthesia. EBL: Minimal. FLUIDS: Crystalloid. DESCRIPTION OF PROCEDURE: The patient was brought to the operating room and was given general anesthesia. After adequate anesthesia and preoperative antibiotics were given the patient was prepped and draped in usual sterile fashion. Supraumbilical incision was made with skin knife. Blunt dissection was carried down to fascia. Fascia was entered with Veress needle and insufflated to 15 mm pressure. Dilating 10 mm trocar was placed and under direct visualization epigastric and two lateral trocars were placed. The gallbladder was seen, grasped, retracted superiorly. There were some minimal adhesions of the gallbladder to the omentum which were taken down with Hook cautery but the peritoneum was taken down on the neck of the gallbladder to where the cystic duct was seen anteriorly and the cystic artery was well visualized medially. The cystic artery was followed up onto the gallbladder itself and then followed back down. Given that the gallbladder was relatively distended it was a little bit more difficult to get behind the neck of the gallbladder at this time and thus the cystic duct was clipped on the gallbladder itself and then pulled down off the gallbladder. The window behind the neck of the gallbladder was much clearer and I was able to get a good window seeing the cystic duct and transition of the neck to the cystic duct. This was clipped on the cystic duct side x2 and proximally on the gallbladder side. The gallbladder was taken off the gallbladder bed using electrocautery and was placed in an Endo Catch bag and brought out through the umbilicus. The right upper quadrant was copiously irrigated until clear and all trocar sites were closed with 4-0 Vicryl after the umbilicus was closed with #0 Vicryl. Steri-Strips and dry, sterile dressing was applied. The patient was awakened, extubated and brought to the recovery room awake, alert, hemodynamically stable. Sponge and needle counts correct x2.
[2021-01-17 14:20] VITALS: BP 162/85
== END 2021-01-17 14:25 | disposition home or self-care (01) ==
LOC: M SDC 08:00
PROVIDERS: ATTEND Surgery
DX: K80.10 Calculus of gallbladder with chronic cholecystitis without obstruction (principal); I10 Essential (primary) hypertension; K21.9 Gastro-esophageal reflux disease without esophagitis; Z79.899 Other long term (current) drug therapy; R94.31 Abnormal electrocardiogram [ECG] [EKG]; Z88.5 Allergy status to narcotic agent; Z88.1 Allergy status to other antibiotic agents; Z88.8 Allergy status to other drugs, medicaments and biological substances
CPT/HCPCS: 47562; 88304; J0131; J0690; J1100; J2250; J2405; J2765; J3010

== ENCOUNTER → 2021-04-05 | Outpatient (REF) | payer MEDICARE ==
[~2021-04-05] MED LIST changes: -LR 1,000 ML IV ONE; -ceFAZolin SOD 1 GM in D5W MINI-BAG PLUS 50 ML IV ONE
[2021-04-05 14:11] LABS: HEMOGLOBIN A1c 5.6 %
[2021-04-05 14:42] LABS: ALBUMIN 3.5 GM/DL (3.2-5.2); ALT/SGPT 21 U/L (12-78); BILIRUBIN,TOTAL 0.3 MG/DL (0.2-1.0); BLOOD UREA NITROGEN 10 MG/DL (7-18); CALCIUM LEVEL 9.9 MG/DL (8.8-10.2); CARBON DIOXIDE LEVEL 28 MEQ/L (21-32); CHLORIDE LEVEL 106 MEQ/L (98-107); CHOLESTEROL LEVEL 211 MG/DL (<200); CHOLESTEROL RISK RATIO 4.395 (<5); CREATININE FOR GFR 0.56 MG/DL (0.55-1.30); GLOMERULAR FILTRATION RATE > 60.0 (>32); GLUCOSE, FASTING 96 MG/DL (70-100); HDL CHOLESTEROL 48 MG/DL (>40); LDL CHOLESTEROL 121 MG/DL (<100); MAGNESIUM LEVEL 2.3 MG/DL (1.8-2.4); NON-HDL-C 163 MG/DL; POTASSIUM SERUM 3.9 MEQ/L (3.5-5.1); SODIUM LEVEL 142 MEQ/L (136-145); TOTAL PROTEIN 6.3 GM/DL (6.4-8.2); TRIGLYCERIDES LEVEL 208 MG/DL (<150)
== END ==
LOC: M SFHCPLAZ 11:10
PROVIDERS: ATTEND Internal Medicine
DX: E78.00 Pure hypercholesterolemia, unspecified (principal); I10 Essential (primary) hypertension; R73.01 Impaired fasting glucose; Z11.59 Encounter for screening for other viral diseases
CPT/HCPCS: 36415; 80053; 80061; 83036; 83735; 84443; G0463; G0472

== ENCOUNTER → 2021-09-15 | Outpatient (CLI) | payer MEDICARE ==
--- NOTE | 2021-09-15 11:18 | REPMRS ---
Patient History The patient states she has not had a clinical breast exam in over a year. No known family history of cancer. Benign stereotactic core biopsy of the left breast, September 12, 2011. Benign excisional biopsy of the right breast, 1980. No Hormone Replacement Therapy Patient states no breast complaints today. Patient has signed MRS History Sheet. Digital Woman Screen Mammo: September 15, 2021 - Exam #: [id number] Bilateral CC and MLO view(s) were taken. Technologist: Nunu Calvo, Snuff Drier Prior study comparison: September 14, 2020, bilateral digital woman screen mammo performed at [facility]. April 14, 2019, bilateral digital woman screen mammo performed at [facility]. FINDINGS: There are scattered fibroglandular densities. Screening. Digital screening (2D) mammography was performed bilaterally in the CC and MLO projections. Additionally, breast tomosynthesis (3D mammography) was performed bilaterally in the CC and MLO projections. Todays exam was compared to the prior exam/exams. By history, the patient has no complaints of a palpable breast abnormality or other significant breast complaints. The breasts are unchanged in size and shape. There are no rupinder-soft tissue densities or spiculated masses. There is no internal architectural distortion.Once again, stable benign appearing calcifications are seen. There are no suspicious rupinder-calcific clusters. Skin thickening or nipple retraction is not present. IMPRESSION: BI-RADS Category 2- Benign Findings. There is no evidence of malignant alteration of the breasts. Followup examination recommended in one year. The Volpara volumetric breast density category is B, there are scattered areas of fibroglandular densities. This mammogram was read with the assistance of [facility],an FDA approved computer aided detection system for mammography. The lifetime Tyrer-Cuzick score is 1.5 % Negative x-ray reports should not delay surgical consultation if a dominant or clinically suspicious mass is present. Not all breast cancers can be identified by mammography. Therefore, we recommend that you continue to perform regular breast self-examination and physical examination and then promptly contact your physician of any concerns or changes. Adenosis and dense breasts may obscure an underlying neoplasm. Assessment: BI-RADS/ACR category 2 mammogram. Benign Findings. Recommendation Routine screening mammogram of both breasts in 1 year. Electronically Signed By: Cameron Santana DO 09/15/21 [id number]
--- NOTE | 2021-09-15 12:59 | DEXAMM ---
INDICATION: OSTEOPENIA. COMPARISON: 04/14/2019 as well as other prior exams. TECHNIQUE: Bone density was measured using dual-energy x-ray absorptiometry (DEXA). FINDINGS: AP SPINE L1-L4 BMD 0.858 g/cm2 Young Adult T-Score -2.7 Age Matched Z-Score -0.9. LT FEMUR, TOTAL BMD 0.632 g/cm2 Young Adult T-Score -3.0 Age Matched Z-Score -1.0. LT NECK BMD 0.611 g/cm2 Young Adult T-Score -3.1 Age Matched Z-Score -0.9. RT FEMUR, TOTAL BMD 0.681 g/cm2 Young Adult T-Score -2.6 Age Matched Z-Score -0.6. RT NECK BMD 0.625 g/cm2 Young Adult T-Score -3.0 Age Matched Z-Score -0.8. IMPRESSION: There is osteoporosis of the spine. There is osteoporosis of the left hip. There is osteoporosis of the right hip. The density of the spine has decreased 16.4% since the initial exam on 11/30/2004. The density of the spine decreased 5.5% since most recent exam on 04/14/2019. The density of the left hip has decreased 26.3% since initial exam on 11/30/2004. The density of the left hip has decreased 14.6% since most recent exam on 04/14/2019. The density of the right hip has decreased 20.3% since the initial exam on 11/30/2004. The density of the right hip has decreased 9.1% since the most recent exam on 04/14/2019. FOLLOW-UP: Recommendation for the next bone density exam: 2 years. <Electronically signed by Mitchell Berman > 09/15/21 0320
== END ==
LOC: M WHC 10:20
PROVIDERS: ATTEND Internal Medicine
DX: Z12.31 Encounter for screening mammogram for malignant neoplasm of breast (principal); M85.89 Other specified disorders of bone density and structure, multiple sites

== ENCOUNTER → 2021-10-25 | Outpatient (REF) | payer MEDICARE ==
[~2021-10-25] MED LIST changes: +BENA-8 PO; -BENA20TA8 PO; +POTA-151 PO; -POTA20TA6 PO
== END ==
LOC: M SFHCPLAZ 11:01
PROVIDERS: ATTEND Internal Medicine
DX: J30.9 Allergic rhinitis, unspecified (principal); I10 Essential (primary) hypertension; R73.01 Impaired fasting glucose; E78.00 Pure hypercholesterolemia, unspecified; E55.9 Vitamin D deficiency, unspecified

== ENCOUNTER → 2021-10-25 | Outpatient (CLI) | payer MEDICARE ==
[~2021-10-25] MED LIST changes: -BENA-8 PO; +BENA20TA8 PO; -POTA-151 PO; +POTA20TA6 PO
[2021-10-25 13:34] LABS: MAGNESIUM LEVEL 2.3 MG/DL (1.8-2.4)
[2021-10-25 13:43] LABS: CREATININE, URINE 97.2 MG/DL; MALB URINE SIEMENS 32.5 MG/L; MAU/CREAT RATIO 33.4 MCG/MG (0.0-30.0)
[2021-10-25 13:49] LABS: TOTAL 25(OH) VITAMIN D 100.4 NG/ML (30.0-100.0)
[2021-10-26 09:07] LABS: ALBUMIN 3.5 GM/DL (3.2-5.2); ALT/SGPT 23 U/L (12-78); BILIRUBIN,TOTAL 0.3 MG/DL (0.2-1.0); BLOOD UREA NITROGEN 9 MG/DL (7-18); CALCIUM LEVEL 9.2 MG/DL (8.8-10.2); CARBON DIOXIDE LEVEL 28 MEQ/L (21-32); CHLORIDE LEVEL 109 MEQ/L (98-107); CHOLESTEROL LEVEL 192 MG/DL (<200); CHOLESTEROL RISK RATIO 4.085 (<5); CREATININE FOR GFR 0.61 MG/DL (0.55-1.30); GLOMERULAR FILTRATION RATE > 60.0 (>32); GLUCOSE, FASTING 106 MG/DL (70-100); HDL CHOLESTEROL 47 MG/DL (>40); LDL CHOLESTEROL 118 MG/DL (<100); NON-HDL-C 145 MG/DL; POTASSIUM SERUM 3.5 MEQ/L (3.5-5.1); SODIUM LEVEL 144 MEQ/L (136-145); TOTAL PROTEIN 6.5 GM/DL (6.4-8.2); TRIGLYCERIDES LEVEL 137 MG/DL (<150)
== END ==
LOC: M PLALAB 11:08
PROVIDERS: ATTEND Internal Medicine
DX: R73.01 Impaired fasting glucose (principal); I10 Essential (primary) hypertension; E55.9 Vitamin D deficiency, unspecified
CPT/HCPCS: 36415; 80053; 80061; 82043; 82306; 83735; G0463

== ENCOUNTER → 2022-05-01 | Outpatient (REF) | payer MEDICARE ==
[~2022-05-01] MED LIST changes: +BENA-8 PO; -BENA20TA8 PO; +POTA-151 PO; -POTA20TA6 PO
== END ==
LOC: M SFHCPLAZ 11:33
PROVIDERS: ATTEND Internal Medicine
DX: E78.00 Pure hypercholesterolemia, unspecified (principal); I10 Essential (primary) hypertension; R73.01 Impaired fasting glucose; J30.9 Allergic rhinitis, unspecified

== ENCOUNTER → 2022-05-01 | Outpatient (CLI) | payer MEDICARE ==
[2022-05-01 15:08] LABS: BASO # 0.1 10^3/uL (0.0-0.2); BASO % 0.7 % (0.0-1.0); EOS # 0.1 10^3/uL (0.0-0.5); EOS % 0.9 % (0.0-3.0); HEMATOCRIT 42.8 % (36.0-47.0); HEMOGLOBIN 14.4 g/dl (12.0-15.5); LYMPH # 2.9 10^3/uL (1.5-5.0); LYMPH % 42.7 % (24.0-44.0); MEAN CORPUSCULAR HEMOGLOBIN 30.6 pg (27.0-33.0); MEAN CORPUSCULAR HGB CONC 33.6 g/dl (32.0-36.5); MEAN CORPUSCULAR VOLUME 90.9 fl (80.0-96.0); MONO # 0.6 10^3/uL (0.0-0.8); MONO % 9.4 % (2.0-8.0); NEUTROPHILS # 3.1 10^3/uL (1.5-8.5); NEUTROPHILS % 46.2 % (36.0-66.0); PLATELET COUNT, AUTOMATED 449 10^3/uL (150-450); RED BLOOD COUNT 4.71 10^6/uL (4.00-5.40); WHITE BLOOD COUNT 6.7 10^3/uL (4.0-10.0)
[2022-05-01 15:27] LABS: HEMOGLOBIN A1c 6.3 %
[2022-05-01 15:41] LABS: ALBUMIN 3.8 GM/DL (3.2-5.2); ALT/SGPT 25 U/L (12-78); BILIRUBIN,TOTAL 0.5 MG/DL (0.2-1.0); BLOOD UREA NITROGEN 12 MG/DL (7-18); CARBON DIOXIDE LEVEL 31 MEQ/L (21-32); CHLORIDE LEVEL 106 MEQ/L (98-107); CHOLESTEROL LEVEL 186 MG/DL (<200); GLOMERULAR FILTRATION RATE > 60.0 (>32); GLUCOSE, FASTING 126 MG/DL (70-100); HDL CHOLESTEROL 50 MG/DL (>40); LDL CHOLESTEROL 112 MG/DL (<100); MAGNESIUM LEVEL 2.1 MG/DL (1.8-2.4); NON-HDL-C 136 MG/DL; POTASSIUM SERUM 3.7 MEQ/L (3.5-5.1); SODIUM LEVEL 139 MEQ/L (136-145); TOTAL PROTEIN 6.7 GM/DL (6.4-8.2); TRIGLYCERIDES LEVEL 120 MG/DL (<150)
[2022-05-01 15:48] LABS: MAU/CREAT RATIO 58.1 MCG/MG (0.0-30.0)
== END ==
LOC: M PLALAB 12:09
PROVIDERS: ATTEND Internal Medicine
DX: E78.00 Pure hypercholesterolemia, unspecified (principal); I10 Essential (primary) hypertension; R73.01 Impaired fasting glucose; J30.9 Allergic rhinitis, unspecified

== ENCOUNTER → 2022-11-01 | Outpatient (CLI) | payer MEDICARE ==
[2022-11-01 15:14] LABS: CREATININE, URINE 82.5 MG/DL; MAU/CREAT RATIO 42.4 MCG/MG (0.0-30.0)
[2022-11-01 16:00] LABS: HEMATOCRIT 41.3 % (36.0-47.0); HEMOGLOBIN 13.6 g/dl (12.0-15.5); MEAN CORPUSCULAR HEMOGLOBIN 30.8 pg (27.0-33.0); MEAN CORPUSCULAR HGB CONC 32.9 g/dl (32.0-36.5); MEAN CORPUSCULAR VOLUME 93.7 fl (80.0-96.0); PLATELET COUNT, AUTOMATED 429 10^3/uL (150-450); RED BLOOD COUNT 4.41 10^6/uL (4.00-5.40); WHITE BLOOD COUNT 6.7 10^3/uL (4.0-10.0)
[2022-11-01 16:34] LABS: ALBUMIN 3.7 G/DL (3.2-5.2); ALKALINE PHOSPHATASE 49 U/L (46-116); ALT/SGPT 16 U/L (7.0-40); AST/SGOT 15 U/L (<34); BILIRUBIN,TOTAL 0.3 MG/DL (0.3-1.2); BLOOD UREA NITROGEN 12 MG/DL (9-23); CALCIUM LEVEL 8.7 MG/DL (8.3-10.6); CARBON DIOXIDE LEVEL 31 MMOL/L (20-31); CHLORIDE LEVEL 102 MMOL/L (98-107); CHOLESTEROL LEVEL 185 MG/DL (<200); CHOLESTEROL RISK RATIO 4.01 (<5); CREATININE FOR GFR 0.67 MG/DL (0.55-1.30); GLOMERULAR FILTRATION RATE > 60.0 (>32); GLUCOSE, FASTING 120 MG/DL (74-106); HDL CHOLESTEROL 46.1 MG/DL (>40); LDL CHOLESTEROL 110.7 MG/DL (<100); NON-HDL-C 139 MG/DL; SODIUM LEVEL 141 MMOL/L (136-145); TOTAL PROTEIN 6.6 G/DL (5.7-8.2); TRIGLYCERIDES LEVEL 141 MG/DL (<150)
[2022-11-01 16:36] LABS: VITAMIN B12 LEVEL 175 PG/ML (211-911)
[2022-11-01 16:37] LABS: FREE T4 1.02 NG/DL (0.89-1.76); THYROID STIMULATING HORMONE 1.044 uIU/ML (0.55-4.78); TOTAL 25(OH) VITAMIN D 63.4 NG/ML (20.0-100.0)
[2022-11-01 17:36] LABS: HEMOGLOBIN A1c 5.8 % (4.0-6.0)
== END ==
LOC: M PLALAB 12:03
PROVIDERS: ATTEND Internal Medicine Hematology
DX: E78.00 Pure hypercholesterolemia, unspecified (principal); Z79.899 Other long term (current) drug therapy

== ENCOUNTER → 2022-12-18 | Outpatient (CLI) | payer MEDICARE | LOC: M WHC 11:26 | PROVIDERS: ATTEND Internal Medicine Hematology | DX: Z12.31 Encounter for screening mammogram for malignant neoplasm of breast (principal) ==

== ENCOUNTER 2023-01-27 11:00 | Emergency (ER) | payer MEDICARE ==
[~2023-01-27] VITALS: Ht 165.1 cm; Wt 60.0 kg
[2023-01-27] MEDS ORDERED: PRED20TA (11:12)
[2023-01-27] MEDS ORDERED: METOPROLOL TART 25 MG TABLET PO ONE ×2 (11:40→13:30)
[2023-01-27] MEDS: METOPROLOL 5 MG/5 ML VIAL IV SCH ×3 (11:51→12:12)
[2023-01-27 11:53] LABS: BASO # 0.1 10^3/uL (0.0-0.2); BASO % 0.3 % (0.0-1.0); EOS % 0.2 % (0.0-3.0); HEMATOCRIT 42.2 % (36.0-47.0); HEMOGLOBIN 13.9 g/dl (12.0-15.5); LYMPH # 2.8 10^3/uL (1.5-5.0); LYMPH % 16.2 % (24.0-44.0); MEAN CORPUSCULAR HEMOGLOBIN 30.6 pg (27.0-33.0); MEAN CORPUSCULAR HGB CONC 32.9 g/dl (32.0-36.5); MONO % 9.9 % (2.0-8.0); NEUTROPHILS # 12.7 10^3/uL (1.5-8.5); NEUTROPHILS % 72.9 % (36.0-66.0); PLATELET COUNT, AUTOMATED 440 10^3/uL (150-450); RED BLOOD COUNT 4.54 10^6/uL (4.00-5.40); WHITE BLOOD COUNT 17.5 10^3/uL (4.0-10.0)
[2023-01-27 12:03] LABS: INR 0.93; PROTHROMBIN TIME 12.7 SECONDS (12.5-14.5)
[2023-01-27 12:17] LABS: CPK CREATINE PHOSPHOKINASE 73 U/L (34-145)
[2023-01-27 12:21] LABS: CK-MB VALUE MASS 1.3 NG/ML (<3.6); MB/CK RELATIVE INDEX 1.78 (< OR =4)
[2023-01-27 12:22] LABS: ALBUMIN 3.9 G/DL (3.2-5.2); ALKALINE PHOSPHATASE 57 U/L (46-116); ALT/SGPT 81 U/L (7.0-40); AST/SGOT 31 U/L (<34); BILIRUBIN,DIRECT 0.4 MG/DL (<0.4); BILIRUBIN,TOTAL 1.2 MG/DL (0.3-1.2); BLOOD UREA NITROGEN 10 MG/DL (9-23); CALCIUM LEVEL 9.1 MG/DL (8.3-10.6); CARBON DIOXIDE LEVEL 29 MMOL/L (20-31); CHLORIDE LEVEL 103 MMOL/L (98-107); CREATININE FOR GFR 0.68 MG/DL (0.55-1.30); GLOMERULAR FILTRATION RATE > 60.0 (>32); GLUCOSE, FASTING 136 MG/DL (74-106); POTASSIUM SERUM 3.5 MMOL/L (3.5-5.1); SODIUM LEVEL 140 MMOL/L (136-145); TOTAL PROTEIN 6.8 G/DL (5.7-8.2)
[2023-01-27 12:25] LABS: RSV AMPLIFICATION NEGATIVE (NEGATIVE)
[2023-01-27 12:26] LABS: MONO # 1.7 10^3/uL (0.0-0.8)
[2023-01-27 13:02] LABS: MB/CK RELATIVE INDEX 1.75 (< OR =4)
[2023-01-27 13:32] VITALS: BP 146/83
[2023-01-27] MEDS ORDERED: bisoproloL fumarate 5 MG TAB PO ONE (15:05)
[2023-01-27] MEDS ORDERED: SPIRONOLACTONE 12.5MG PER 1/2 TABLET PO STA (15:23)
[2023-01-27] MEDS ORDERED: CHLORTHALIDONE 12.5MG PER 1/2 TABLET PO ONE (15:25)
[2023-01-27] MEDS ORDERED: APIXABAN 2.5 MG TAB (ELIQUIS) PO ONE (15:25)
[2023-01-27] MEDS ORDERED: DIGOXIN INJ 0.5 MG/2 ML AMP IV STA (16:28)
[2023-01-27] MEDS ORDERED: ELIQ5TAB PO (17:41)
[2023-01-27] MEDS ORDERED: BISO5TAB14 PO (17:42)
[2023-01-27] MEDS ORDERED: CHLO125TA PO (17:43)
[2023-01-27] MEDS ORDERED: SPIR-10 PO (17:44)
[2023-01-27 18:00] VITALS: BP 174/83
== END 2023-01-27 18:19 | disposition home or self-care (01) ==
LOC: M ED 11:00
DX: I48.0 Paroxysmal atrial fibrillation (principal); I44.4 Left anterior fascicular block; I44.7 Left bundle-branch block, unspecified; I10 Essential (primary) hypertension; E78.5 Hyperlipidemia, unspecified; Z88.1 Allergy status to other antibiotic agents; Z88.6 Allergy status to analgesic agent; Z88.5 Allergy status to narcotic agent; Z79.01 Long term (current) use of anticoagulants; Z79.811 Long term (current) use of aromatase inhibitors; Z79.52 Long term (current) use of systemic steroids; Z79.899 Other long term (current) drug therapy
CPT/HCPCS: 71045; 80048; 80076; 82550; 82553; 83880; 84436; 84443; 84484; 85025; 85610; 87631; 93005; 93041; 94760; 96374; 96375; 99285; J1160

== ENCOUNTER → 2023-02-13 | Outpatient (CLI) | payer MEDICARE ==
[~2023-02-13] MED LIST changes: +BISO5TAB14 PO; +CHLO125TA PO; +ELIQ5TAB PO; +PRED20TA; +SPIR-10 PO
[2023-02-13 15:46] LABS: BASO # 0.1 10^3/uL (0.0-0.2); BASO % 0.7 % (0.0-1.0); EOS # 0.1 10^3/uL (0.0-0.5); HEMATOCRIT 42.9 % (36.0-47.0); HEMOGLOBIN 13.7 g/dl (12.0-15.5); LYMPH # 3.3 10^3/uL (1.5-5.0); LYMPH % 28.6 % (24.0-44.0); MEAN CORPUSCULAR HEMOGLOBIN 30.5 pg (27.0-33.0); MEAN CORPUSCULAR HGB CONC 31.9 g/dl (32.0-36.5); MEAN CORPUSCULAR VOLUME 95.5 fl (80.0-96.0); MONO # 0.9 10^3/uL (0.0-0.8); MONO % 8.1 % (2.0-8.0); NEUTROPHILS % 61.1 % (36.0-66.0); PLATELET COUNT, AUTOMATED 383 10^3/uL (150-450); RED BLOOD COUNT 4.49 10^6/uL (4.00-5.40); WHITE BLOOD COUNT 11.4 10^3/uL (4.0-10.0)
[2023-02-13 16:17] LABS: ALBUMIN 3.9 G/DL (3.2-5.2); BILIRUBIN,TOTAL 0.9 MG/DL (0.3-1.2); CALCIUM LEVEL 9.5 MG/DL (8.3-10.6); CREATININE FOR GFR 1.28 MG/DL (0.55-1.30); GLOMERULAR FILTRATION RATE 42.6 (>32); POTASSIUM SERUM 4.2 MMOL/L (3.5-5.1); THYROID STIMULATING HORMONE 1.668 uIU/ML (0.55-4.78); TOTAL PROTEIN 6.6 G/DL (5.7-8.2)
== END ==
LOC: M PLALAB 13:48
PROVIDERS: ATTEND Internal Medicine Hematology
DX: I44.7 Left bundle-branch block, unspecified (principal); Z79.899 Other long term (current) drug therapy

== ENCOUNTER 2023-02-23 10:27 | Observation (INO) | payer MEDICARE ==
[~2023-02-23] VITALS: Ht 167.6 cm; Wt 62.1 kg
[2023-02-23] MEDS ORDERED: ELIQ5TAB PO (10:44)
[2023-02-23 11:12] LABS: BASO # 0.1 10^3/uL (0.0-0.2); BASO % 0.6 % (0.0-1.0); EOS # 0.1 10^3/uL (0.0-0.5); EOS % 1.5 % (0.0-3.0); HEMATOCRIT 40.2 % (36.0-47.0); HEMOGLOBIN 13.3 g/dl (12.0-15.5); LYMPH # 2.3 10^3/uL (1.5-5.0); LYMPH % 24.5 % (24.0-44.0); MEAN CORPUSCULAR HEMOGLOBIN 30.2 pg (27.0-33.0); MEAN CORPUSCULAR HGB CONC 33.1 g/dl (32.0-36.5); MEAN CORPUSCULAR VOLUME 91.2 fl (80.0-96.0); MONO # 0.7 10^3/uL (0.0-0.8); MONO % 7.6 % (2.0-8.0); NEUTROPHILS # 6.2 10^3/uL (1.5-8.5); NEUTROPHILS % 65.3 % (36.0-66.0); PLATELET COUNT, AUTOMATED 356 10^3/uL (150-450); RED BLOOD COUNT 4.41 10^6/uL (4.00-5.40); WHITE BLOOD COUNT 9.5 10^3/uL (4.0-10.0)
[2023-02-23] MEDS ORDERED: METOPROLOL TART 25 MG TABLET PO ONE (11:25)
[2023-02-23] MEDS: METOPROLOL 5 MG/5 ML VIAL IV SCH ×3 (11:35→11:58)
[2023-02-23 11:48] LABS: CALCIUM LEVEL 9.1 MG/DL (8.3-10.6); CREATININE FOR GFR 1.33 MG/DL (0.55-1.30); GLOMERULAR FILTRATION RATE 40.8 (>32)
[2023-02-23] MEDS ORDERED: DIGOXIN INJ 0.5 MG/2 ML AMP IV ONE ×3 (12:10→18:00)
[2023-02-23] MEDS ORDERED: FUROSEMIDE 40MG/4ML VIAL IV ONE (12:15)
[2023-02-23] MEDS ORDERED: VITA500T40 PO (15:14)
[2023-02-23] MEDS ORDERED: CETI10TA PO (15:14)
[2023-02-23] MEDS ORDERED: SPIR-10 PO (15:14)
[2023-02-23] MEDS ORDERED: CHLO125TA PO (15:14)
[2023-02-23] MEDS ORDERED: BISO5TAB14 PO (15:14)
[2023-02-23] MEDS ORDERED: HOME MED LIST COMPLETE! XX SCH (15:20)
[2023-02-23 16:29] VITALS: BP 144/78
[2023-02-23] MEDS ORDERED: FUROSEMIDE 40MG/4ML VIAL IV SCH (18:00)
[2023-02-23 20:03] VITALS: BP 165/78
[2023-02-23] MEDS: APIXABAN 2.5 MG TAB (ELIQUIS) PO SCH (20:56)
[2023-02-24 00:29] VITALS: BP 133/60
[2023-02-24 04:10] VITALS: BP 125/61
[2023-02-24 05:44] LABS: HEMATOCRIT 37.3 % (36.0-47.0); HEMOGLOBIN 12.4 g/dl (12.0-15.5); MEAN CORPUSCULAR HEMOGLOBIN 30.2 pg (27.0-33.0); MEAN CORPUSCULAR HGB CONC 33.2 g/dl (32.0-36.5); PLATELET COUNT, AUTOMATED 346 10^3/uL (150-450); WHITE BLOOD COUNT 8.6 10^3/uL (4.0-10.0)
[2023-02-24 06:16] LABS: CALCIUM LEVEL 8.9 MG/DL (8.3-10.6); CREATININE FOR GFR 1.28 MG/DL (0.55-1.30); DIGOXIN LEVEL 1.9 NG/ML (0.8-2.0); GLOMERULAR FILTRATION RATE 42.6 (>32); MAGNESIUM LEVEL 1.8 MG/DL (1.8-2.4); POTASSIUM SERUM 3.5 MMOL/L (3.5-5.1)
[2023-02-24 07:30] VITALS: BP 133/71
[2023-02-24] MEDS ORDERED: CETIRIZINE (ZyrTEC) 10 MG TAB PO SCH (09:00)
[2023-02-24] MEDS ORDERED: CYANOCOBALAMIN 500 MCG TAB PO SCH (09:00)
[2023-02-24] MEDS ORDERED: DIGOXIN 0.125 MG TAB PO SCH (09:00)
[2023-02-24] MEDS ORDERED: POTASSIUM CHLORIDE 10MEQ SR TABLET PO SCH (09:00)
[2023-02-24] MEDS ORDERED: FUROSEMIDE 40 MG TAB PO ONE (09:00)
[2023-02-24] MEDS ORDERED: bisoproloL fumarate 5 MG TAB PO SCH (09:00)
[2023-02-24 09:39] VITALS: BP 133/71
[2023-02-24] MEDS: APIXABAN 2.5 MG TAB (ELIQUIS) PO SCH (09:39)
[2023-02-24] MEDS ORDERED: ELIQ2.5T PO (10:41)
[2023-02-24] MEDS ORDERED: DIGO0.123 PO (10:41)
[2023-02-24] MEDS ORDERED: BISO5TAB14 PO (10:41)
== END 2023-02-24 12:42 | disposition home or self-care (01) ==
LOC: M ED 10:27 → M ED INP 14:52 → ENRESERV 15:58 → M PCU 16:24
PROVIDERS: ADMIT Student in an Organized Health Care Education/Training Program; ATTEND Student in an Organized Health Care Education/Training Program
DX: I50.23 Acute on chronic systolic (congestive) heart failure (principal); I48.0 Paroxysmal atrial fibrillation; N17.0 Acute kidney failure with tubular necrosis; N18.30 Chronic kidney disease, stage 3 unspecified; I44.7 Left bundle-branch block, unspecified; I10 Essential (primary) hypertension; E55.9 Vitamin D deficiency, unspecified; M85.89 Other specified disorders of bone density and structure, multiple sites; E78.5 Hyperlipidemia, unspecified; Z79.01 Long term (current) use of anticoagulants; Z79.899 Other long term (current) drug therapy; Z88.8 Allergy status to other drugs, medicaments and biological substances; Z88.5 Allergy status to narcotic agent; Z88.1 Allergy status to other antibiotic agents
CPT/HCPCS: 36415; 71045; 80048; 80162; 83735; 83880; 85025; 85027; 87635; 93005; 93041; 94760; 96374; 96375; 96376; 97161; 97530; 99285; G0378; J1160; J1940

== ENCOUNTER → 2023-04-11 | Outpatient (CLI) | payer MEDICARE ==
[~2023-04-11] MED LIST changes: +CETI10TA PO; +DIGO0.123 PO; +ELIQ2.5T PO; +VITA500T40 PO
[2023-04-11 12:11] LABS: ALBUMIN 3.7 G/DL (3.2-5.2); CALCIUM LEVEL 9.6 MG/DL (8.3-10.6); CHOLESTEROL RISK RATIO 5.1 (<5); CREATININE FOR GFR 1.27 MG/DL (0.55-1.30); GLOMERULAR FILTRATION RATE 42.9 (>32); HDL CHOLESTEROL 33.7 MG/DL (>40); LDL CHOLESTEROL 109.1 MG/DL (<100); NON-HDL-C 138.3 MG/DL; PHOSPHORUS LEVEL 4.4 MG/DL (2.4-5.1)
== END ==
LOC: M WUC 08:45
PROVIDERS: ATTEND Internal Medicine Cardiovascular Disease
DX: I50.32 Chronic diastolic (congestive) heart failure (principal); R94.31 Abnormal electrocardiogram [ECG] [EKG]

== ENCOUNTER → 2023-07-01 | Outpatient (CLI) | payer MEDICARE ==
[~2023-07-01] MED LIST changes: +ACET500P3 PO; +BENZ200C70 PO; +CARV6.25 PO; +FARX1TAB3 PO
[2023-07-01 13:43] LABS: BASO # 0.1 10^3/uL (0.0-0.2); BASO % 0.6 % (0.0-1.0); EOS # 0.1 10^3/uL (0.0-0.5); EOS % 1.8 % (0.0-3.0); HEMATOCRIT 43.9 % (36.0-47.0); HEMOGLOBIN 14.5 g/dl (12.0-15.5); LYMPH # 2.2 10^3/uL (1.5-5.0); LYMPH % 27.2 % (24.0-44.0); MEAN CORPUSCULAR HEMOGLOBIN 28.7 pg (27.0-33.0); MEAN CORPUSCULAR VOLUME 86.9 fl (80.0-96.0); MONO # 0.8 10^3/uL (0.0-0.8); MONO % 9.8 % (2.0-8.0); NEUTROPHILS # 4.8 10^3/uL (1.5-8.5); NEUTROPHILS % 60.3 % (36.0-66.0); PLATELET COUNT, AUTOMATED 362 10^3/uL (150-450); RED BLOOD COUNT 5.05 10^6/uL (4.00-5.40); WHITE BLOOD COUNT 7.9 10^3/uL (4.0-10.0)
[2023-07-01 14:11] LABS: ALBUMIN 3.9 G/DL (3.2-5.2); CALCIUM LEVEL 10.6 MG/DL (8.3-10.6); CREATININE FOR GFR 1.41 MG/DL (0.55-1.30); PHOSPHORUS LEVEL 3.8 MG/DL (2.4-5.1)
== END ==
LOC: M PLALAB 10:08
PROVIDERS: ATTEND Internal Medicine Cardiovascular Disease
DX: I11.0 Hypertensive heart disease with heart failure (principal); I50.42 Chronic combined systolic (congestive) and diastolic (congestive) heart failure; I48.21 Permanent atrial fibrillation; I35.1 Nonrheumatic aortic (valve) insufficiency

== ENCOUNTER → 2023-11-13 | Outpatient (CLI) | payer MEDICARE ==
[2023-11-13 16:41] LABS: ALBUMIN 4.2 G/DL (3.2-5.2); BILIRUBIN,TOTAL 0.6 MG/DL (0.3-1.2); CALCIUM LEVEL 11.5 MG/DL (8.3-10.6); CHOLESTEROL RISK RATIO 3.46 (<5); CREATININE FOR GFR 1.13 MG/DL (0.55-1.30); GLOMERULAR FILTRATION RATE 49.1 (>32); HDL CHOLESTEROL 36.6 MG/DL (>40); LDL CHOLESTEROL 57.2 MG/DL (<100); MAGNESIUM LEVEL 1.8 MG/DL (1.8-2.4); NON-HDL-C 90.4 MG/DL; POTASSIUM SERUM 4.5 MMOL/L (3.5-5.1)
== END ==
LOC: M PLALAB 12:08
PROVIDERS: ATTEND Internal Medicine Cardiovascular Disease
DX: I50.42 Chronic combined systolic (congestive) and diastolic (congestive) heart failure (principal); R07.2 Precordial pain; I11.0 Hypertensive heart disease with heart failure

== ENCOUNTER → 2023-11-13 | Outpatient (CLI) | payer MEDICARE ==
[2023-11-13 16:16] LABS: HEMATOCRIT 39.8 % (36.0-47.0); HEMOGLOBIN 13.6 g/dl (12.0-15.5); MEAN CORPUSCULAR HEMOGLOBIN 31.6 pg (27.0-33.0); MEAN CORPUSCULAR HGB CONC 34.2 g/dl (32.0-36.5); MEAN CORPUSCULAR VOLUME 92.6 fl (80.0-96.0); PLATELET COUNT, AUTOMATED 349 10^3/uL (150-450); WHITE BLOOD COUNT 10.4 10^3/uL (4.0-10.0)
[2023-11-13 16:44] LABS: C REACTIVE PROTEIN QUANTITATIV < 0.40 MG/DL (<1.0)
[2023-11-13 16:46] LABS: ALBUMIN 4.3 G/DL (3.2-5.2); ALKALINE PHOSPHATASE 31 U/L (46-116); ALT/SGPT 15 U/L (7.0-40); AST/SGOT 11 U/L (<34); BILIRUBIN,TOTAL 0.6 MG/DL (0.3-1.2); BLOOD UREA NITROGEN 32 MG/DL (9-23); CALCIUM LEVEL 10.9 MG/DL (8.3-10.6); CARBON DIOXIDE LEVEL 29 MMOL/L (20-31); CHLORIDE LEVEL 104 MMOL/L (98-107); CHOLESTEROL LEVEL 126 MG/DL (<200); CHOLESTEROL RISK RATIO 3.32 (<5); CREATININE FOR GFR 1.14 MG/DL (0.55-1.30); DIGOXIN LEVEL 0.6 NG/ML (0.8-2.0); GLOMERULAR FILTRATION RATE 48.6 (>32); GLUCOSE, FASTING 135 MG/DL (74-106); HDL CHOLESTEROL 37.9 MG/DL (>40); LDL CHOLESTEROL 53.7 MG/DL (<100); NON-HDL-C 88.1 MG/DL; POTASSIUM SERUM 4.5 MMOL/L (3.5-5.1); SODIUM LEVEL 138 MMOL/L (136-145); THYROID STIMULATING HORMONE 1.546 uIU/ML (0.55-4.78); TRIGLYCERIDES LEVEL 172 MG/DL (<150)
[2023-11-13 16:47] LABS: FREE T4 1.13 NG/DL (0.89-1.76); TOTAL 25(OH) VITAMIN D 62.4 NG/ML (20.0-100.0)
[2023-11-13 16:51] LABS: HEMOGLOBIN A1c 6.7 % (4.0-6.0)
[2023-11-13 16:52] LABS: VITAMIN B12 LEVEL 1731 PG/ML (211-911)
== END ==
LOC: M PLALAB 12:10
PROVIDERS: ATTEND Internal Medicine Hematology
DX: I48.91 Unspecified atrial fibrillation (principal); I10 Essential (primary) hypertension; R73.01 Impaired fasting glucose; M81.0 Age-related osteoporosis without current pathological fracture

== ENCOUNTER → 2024-02-19 | Outpatient (CLI) | payer MEDICARE | LOC: M WHC 09:55 | PROVIDERS: ATTEND Internal Medicine Hematology | DX: M85.88 Other specified disorders of bone density and structure, other site (principal); M85.851 Other specified disorders of bone density and structure, right thigh; M85.852 Other specified disorders of bone density and structure, left thigh ==

== ENCOUNTER → 2024-02-24 | Outpatient (CLI) | payer MEDICARE ==
[2024-02-24 16:58] LABS: BASO # 0.1 10^3/uL (0.0-0.2); BASO % 0.9 % (0.0-1.0); EOS # 0.2 10^3/uL (0.0-0.5); EOS % 1.8 % (0.0-3.0); HEMATOCRIT 42.3 % (36.0-47.0); HEMOGLOBIN 14.1 g/dl (12.0-15.5); LYMPH # 3.4 10^3/uL (1.5-5.0); LYMPH % 34.7 % (24.0-44.0); MEAN CORPUSCULAR HEMOGLOBIN 31.3 pg (27.0-33.0); MEAN CORPUSCULAR HGB CONC 33.3 g/dl (32.0-36.5); MONO # 1.1 10^3/uL (0.0-0.8); MONO % 10.6 % (2.0-8.0); NEUTROPHILS # 5.1 10^3/uL (1.5-8.5); NEUTROPHILS % 51.7 % (36.0-66.0); PLATELET COUNT, AUTOMATED 357 10^3/uL (150-450); WHITE BLOOD COUNT 9.9 10^3/uL (4.0-10.0)
[2024-02-24 17:23] LABS: ALBUMIN 4.4 G/DL (3.2-5.2); BILIRUBIN,TOTAL 0.5 MG/DL (0.3-1.2); CALCIUM LEVEL 11.2 MG/DL (8.3-10.6); CHOLESTEROL RISK RATIO 4.38 (<5); CREATININE FOR GFR 1.3 MG/DL (0.55-1.30); GLOMERULAR FILTRATION RATE 41.7 (>32); HDL CHOLESTEROL 35.8 MG/DL (>40); LDL CHOLESTEROL 85.6 MG/DL (<100); MAGNESIUM LEVEL 2.1 MG/DL (1.8-2.4); NON-HDL-C 121.2 MG/DL; POTASSIUM SERUM 4.8 MMOL/L (3.5-5.1)
[2024-02-24 17:25] LABS: THYROID STIMULATING HORMONE 1.973 uIU/ML (0.55-4.78)
== END ==
LOC: M WUC 14:55
PROVIDERS: ATTEND Internal Medicine Cardiovascular Disease
DX: I11.9 Hypertensive heart disease without heart failure (principal); I48.11 Longstanding persistent atrial fibrillation; Z13.29 Encounter for screening for other suspected endocrine disorder; E78.2 Mixed hyperlipidemia; I50.9 Heart failure, unspecified; R06.02 Shortness of breath

== ENCOUNTER → 2024-05-13 | Outpatient (CLI) | payer MEDICARE ==
[2024-05-13 11:51] LABS: BASO # 0.1 10^3/uL (0.0-0.2); BASO % 0.8 % (0.0-1.0); EOS # 0.1 10^3/uL (0.0-0.5); EOS % 1.8 % (0.0-3.0); HEMATOCRIT 42.9 % (36.0-47.0); HEMOGLOBIN 14.3 g/dl (12.0-15.5); LYMPH # 2.1 10^3/uL (1.5-5.0); LYMPH % 27.6 % (24.0-44.0); MEAN CORPUSCULAR HEMOGLOBIN 31.3 pg (27.0-33.0); MEAN CORPUSCULAR HGB CONC 33.3 g/dl (32.0-36.5); MEAN CORPUSCULAR VOLUME 93.9 fl (80.0-96.0); MONO # 0.6 10^3/uL (0.0-0.8); MONO % 7.7 % (2.0-8.0); NEUTROPHILS # 4.7 10^3/uL (1.5-8.5); NEUTROPHILS % 61.8 % (36.0-66.0); PLATELET COUNT, AUTOMATED 280 10^3/uL (150-450); RED BLOOD COUNT 4.57 10^6/uL (4.00-5.40); WHITE BLOOD COUNT 7.7 10^3/uL (4.0-10.0)
[2024-05-13 11:54] LABS: BILIRUBIN,TOTAL 0.9 MG/DL (0.3-1.2); CALCIUM LEVEL 10.5 MG/DL (8.3-10.6); CREATININE FOR GFR 1.29 MG/DL (0.55-1.30); POTASSIUM SERUM 3.7 MMOL/L (3.5-5.1); TOTAL PROTEIN 6.7 G/DL (5.7-8.2)
== END ==
LOC: M WUC 09:11
PROVIDERS: ATTEND Internal Medicine Cardiovascular Disease
DX: E78.2 Mixed hyperlipidemia (principal); R06.02 Shortness of breath; I50.9 Heart failure, unspecified; I48.11 Longstanding persistent atrial fibrillation; I11.0 Hypertensive heart disease with heart failure; Z13.29 Encounter for screening for other suspected endocrine disorder

== ENCOUNTER → 2024-06-13 | Outpatient (CLI) | payer MEDICARE ==
[2024-06-13 13:57] LABS: CALCIUM LEVEL 10.1 MG/DL (8.3-10.6); CREATININE FOR GFR 1.16 MG/DL (0.55-1.30); GLOMERULAR FILTRATION RATE 47.5 (>32); MAGNESIUM LEVEL 2.1 MG/DL (1.8-2.4); POTASSIUM SERUM 4.6 MMOL/L (3.5-5.1)
== END ==
LOC: M LAB 12:43
PROVIDERS: ATTEND Internal Medicine Cardiovascular Disease
DX: I11.9 Hypertensive heart disease without heart failure (principal); I48.11 Longstanding persistent atrial fibrillation

== ENCOUNTER 2024-08-07 08:34 | Inpatient (IN) | payer MEDICARE ==
[~2024-08-07] VITALS: Ht 165.1 cm; Wt 59.2 kg
[2024-08-07 09:16] LABS: BASO # 0.1 10^3/uL (0.0-0.2); BASO % 0.9 % (0.0-1.0); EOS # 0.2 10^3/uL (0.0-0.5); LYMPH # 2.8 10^3/uL (1.5-5.0); LYMPH % 35.2 % (24.0-44.0); MEAN CORPUSCULAR HEMOGLOBIN 31.1 pg (27.0-33.0); MEAN CORPUSCULAR HGB CONC 33.3 g/dl (32.0-36.5); MEAN CORPUSCULAR VOLUME 93.4 fl (80.0-96.0); MONO # 0.7 10^3/uL (0.0-0.8); MONO % 8.7 % (2.0-8.0); NEUTROPHILS # 4.1 10^3/uL (1.5-8.5); NEUTROPHILS % 51.8 % (36.0-66.0); PLATELET COUNT, AUTOMATED 270 10^3/uL (150-450); RED BLOOD COUNT 4.82 10^6/uL (4.00-5.40); WHITE BLOOD COUNT 7.9 10^3/uL (4.0-10.0)
[2024-08-07 09:27] LABS: INR 1.23; PARTIAL THROMBOPLASTIN TIME 28.9 SECONDS (24.8-34.2); PROTHROMBIN TIME 15.2 SECONDS (12.5-14.5)
[2024-08-07 09:47] LABS: CK-MB VALUE MASS 2.2 NG/ML (<3.6)
[2024-08-07 09:49] LABS: DIGOXIN LEVEL < 0.1 NG/ML (0.8-2.0)
[2024-08-07 09:50] LABS: ALBUMIN 3.7 G/DL (3.2-5.2); ALKALINE PHOSPHATASE 63 U/L (46-116); ALT/SGPT 23 U/L (7.0-40); AST/SGOT 21 U/L (<34); BILIRUBIN,DIRECT 0.3 MG/DL (<0.4); BILIRUBIN,TOTAL 0.9 MG/DL (0.3-1.2); BLOOD UREA NITROGEN 26 MG/DL (9-23); CALCIUM LEVEL 9.8 MG/DL (8.3-10.6); CARBON DIOXIDE LEVEL 25 MMOL/L (20-31); CHLORIDE LEVEL 109 MMOL/L (98-107); CREATININE FOR GFR 1.37 MG/DL (0.55-1.30); GLOMERULAR FILTRATION RATE 39.2 (>32); GLUCOSE, FASTING 192 MG/DL (74-106); POTASSIUM SERUM 4.3 MMOL/L (3.5-5.1); SODIUM LEVEL 138 MMOL/L (136-145); TOTAL PROTEIN 6.6 G/DL (5.7-8.2)
[2024-08-07 09:51] LABS: FREE T4 1.14 NG/DL (0.89-1.76); THYROID STIMULATING HORMONE 3.143 uIU/ML (0.55-4.78)
[2024-08-07 09:54] LABS: CPK CREATINE PHOSPHOKINASE 67 U/L (34-145); MB/CK RELATIVE INDEX 3.28 (< OR =4)
[2024-08-07 10:10] LABS: MAGNESIUM LEVEL 2.1 MG/DL (1.8-2.4)
[2024-08-07] MEDS: FUROSEMIDE 20MG/2ML VIAL IV ONE (10:29)
[2024-08-07 10:49] LABS: MB/CK RELATIVE INDEX 3.7 (< OR =4)
[2024-08-07] MEDS: DIGOXIN INJ 0.5 MG/2 ML AMP IV STA (10:56)
[2024-08-07] MEDS ORDERED: CALCD50TA PO (12:37)
[2024-08-07] MEDS ORDERED: ENTR1TAB PO (12:37)
[2024-08-07] MEDS ORDERED: PREV1.1P2 PO (12:37)
[2024-08-07] MEDS ORDERED: JARD1TAB PO (12:37)
[2024-08-07] MEDS ORDERED: ACET-841 PO (12:37)
[2024-08-07] MEDS ORDERED: ELIQ2.5T PO (12:37)
[2024-08-07] MEDS ORDERED: ATOR1TAB19 PO (12:37)
[2024-08-07] MEDS ORDERED: HOME MED LIST COMPLETE! XX SCH (12:40)
[2024-08-07 13:23] LABS: MAGNESIUM LEVEL 2.1 MG/DL (1.8-2.4)
[2024-08-07 13:32] LABS: PROCALCITONIN 0.05 ng/ml
[2024-08-07 15:55] VITALS: BP 105/81; TEMP 97.6; O2SAT 98
[2024-08-07] MEDS ORDERED: ACETAMINOPHEN 500 MG TAB PO PRN (16:40)
[2024-08-07] MEDS: DIGOXIN INJ 0.5 MG/2 ML AMP IV SCH (17:00)
[2024-08-07 19:51] VITALS: BP 173/71; TEMP 97.2; O2SAT 94
[2024-08-07] MEDS: APIXABAN 2.5 MG TAB (ELIQUIS) PO SCH (20:15)
[2024-08-07] MEDS: CARVedilol 6.25 MG TAB PO SCH (20:15)
[2024-08-07 23:40] VITALS: BP 153/72; TEMP 97.1; O2SAT 93
[2024-08-08 03:04] VITALS: BP 136/67; TEMP 96.9; O2SAT 93
[2024-08-08 07:26] LABS: HEMATOCRIT 39.1 % (36.0-47.0); HEMOGLOBIN 13.4 g/dl (12.0-15.5); MEAN CORPUSCULAR HEMOGLOBIN 31.8 pg (27.0-33.0); MEAN CORPUSCULAR HGB CONC 34.3 g/dl (32.0-36.5); MEAN CORPUSCULAR VOLUME 92.9 fl (80.0-96.0); PLATELET COUNT, AUTOMATED 263 10^3/uL (150-450); RED BLOOD COUNT 4.21 10^6/uL (4.00-5.40)
[2024-08-08 07:52] LABS: CALCIUM LEVEL 9.2 MG/DL (8.3-10.6); CREATININE FOR GFR 1.01 MG/DL (0.55-1.30); GLOMERULAR FILTRATION RATE 55.7 (>32); POTASSIUM SERUM 3.5 MMOL/L (3.5-5.1)
[2024-08-08 08:00] VITALS: BP 135/65; TEMP 97; O2SAT 94
[2024-08-08 08:18] VITALS: BP 135/65
[2024-08-08] MEDS: CALCIUM/VITAMIN D 500 MG TAB PO SCH (08:18)
[2024-08-08] MEDS: ATORVASTATIN 10 MG TAB PO SCH (08:18)
[2024-08-08] MEDS: CYANOCOBALAMIN 500 MCG TAB PO SCH (08:18)
[2024-08-08] MEDS: POTASSIUM CHLORIDE 10MEQ SR TABLET PO SCH (08:19)
[2024-08-08] MEDS: ENTRESTO 24-26MG TABLET (SACUBITRIL/VALSARTAN) PO SCH (08:19)
[2024-08-08 12:00] VITALS: BP 158/93; TEMP 96.9; O2SAT 95
[2024-08-08] MEDS ORDERED: DIGO0.123 PO (12:00)
== END 2024-08-08 14:40 | disposition home or self-care (01) | DRG 309 ==
LOC: M ED 08:34 → M ED INP 11:59 → M PCU 15:44
PROVIDERS: ADMIT Internal Medicine; ATTEND Internal Medicine
PROC: B246ZZZ Ultrasonography of Right and Left Heart (ICD-10-PCS; principal; 2024-08-08)
DX: I48.0 Paroxysmal atrial fibrillation (principal); I50.22 Chronic systolic (congestive) heart failure; E78.5 Hyperlipidemia, unspecified; K21.9 Gastro-esophageal reflux disease without esophagitis; I11.0 Hypertensive heart disease with heart failure; Z90.49 Acquired absence of other specified parts of digestive tract; Z90.79 Acquired absence of other genital organ(s); Z87.891 Personal history of nicotine dependence; Z79.01 Long term (current) use of anticoagulants; Z79.899 Other long term (current) drug therapy; Z88.1 Allergy status to other antibiotic agents; Z88.5 Allergy status to narcotic agent; Z88.6 Allergy status to analgesic agent; Z88.8 Allergy status to other drugs, medicaments and biological substances

== ENCOUNTER → 2024-08-10 | Outpatient (CLI) | payer MEDICARE ==
[~2024-08-10] MED LIST changes: +ACET-841 PO; +ATOR1TAB19 PO; +CALCD50TA PO; +ENTR1TAB PO; +JARD1TAB PO; +PREV1.1P2 PO
[2024-08-10 16:16] LABS: BASO # 0.1 10^3/uL (0.0-0.2); BASO % 0.9 % (0.0-1.0); EOS # 0.2 10^3/uL (0.0-0.5); EOS % 2.3 % (0.0-3.0); HEMATOCRIT 44.1 % (36.0-47.0); HEMOGLOBIN 14.7 g/dl (12.0-15.5); LYMPH # 1.7 10^3/uL (1.5-5.0); LYMPH % 25.1 % (24.0-44.0); MEAN CORPUSCULAR HGB CONC 33.3 g/dl (32.0-36.5); MONO # 0.9 10^3/uL (0.0-0.8); MONO % 13.7 % (2.0-8.0); NEUTROPHILS # 3.9 10^3/uL (1.5-8.5); NEUTROPHILS % 57.7 % (36.0-66.0); PLATELET COUNT, AUTOMATED 321 10^3/uL (150-450); RED BLOOD COUNT 4.74 10^6/uL (4.00-5.40); WHITE BLOOD COUNT 6.7 10^3/uL (4.0-10.0)
[2024-08-10 16:47] LABS: C REACTIVE PROTEIN QUANTITATIV < 0.40 MG/DL (<1.0)
[2024-08-10 16:57] LABS: ALKALINE PHOSPHATASE 59 U/L (46-116); ALT/SGPT 16 U/L (7.0-40); AST/SGOT 14 U/L (<34); BILIRUBIN,TOTAL 0.8 MG/DL (0.3-1.2); BLOOD UREA NITROGEN 19 MG/DL (9-23); CALCIUM LEVEL 9.8 MG/DL (8.3-10.6); CARBON DIOXIDE LEVEL 27 MMOL/L (20-31); CHLORIDE LEVEL 107 MMOL/L (98-107); CHOLESTEROL LEVEL 118 MG/DL (<200); CHOLESTEROL RISK RATIO 2.85 (<5); CREATININE FOR GFR 1.01 MG/DL (0.55-1.30); GLOMERULAR FILTRATION RATE 55.7 (>32); GLUCOSE, FASTING 99 MG/DL (74-106); HDL CHOLESTEROL 41.3 MG/DL (>40); LDL CHOLESTEROL 60.3 MG/DL (<100); NON-HDL-C 76.7 MG/DL; POTASSIUM SERUM 4.5 MMOL/L (3.5-5.1); SODIUM LEVEL 140 MMOL/L (136-145); THYROID STIMULATING HORMONE 1.098 uIU/ML (0.55-4.78); TOTAL 25(OH) VITAMIN D 48.7 NG/ML (20.0-100.0); TOTAL PROTEIN 6.7 G/DL (5.7-8.2); TRIGLYCERIDES LEVEL 82 MG/DL (<150); VITAMIN B12 LEVEL 520 PG/ML (211-911)
[2024-08-10 17:22] LABS: HEMOGLOBIN A1c 5.9 % (4.0-6.0)
== END ==
LOC: M PLALAB 11:54
PROVIDERS: ATTEND Internal Medicine Hematology
DX: I48.91 Unspecified atrial fibrillation (principal); Z79.899 Other long term (current) drug therapy

== ENCOUNTER → 2024-08-19 | Outpatient (CLI) | payer MEDICARE ==
[2024-08-19 17:50] LABS: BASO # 0.1 10^3/uL (0.0-0.2); BASO % 1.3 % (0.0-1.0); EOS # 0.1 10^3/uL (0.0-0.5); EOS % 1.8 % (0.0-3.0); HEMOGLOBIN 15.8 g/dl (12.0-15.5); LYMPH # 2.1 10^3/uL (1.5-5.0); LYMPH % 31.9 % (24.0-44.0); MEAN CORPUSCULAR HEMOGLOBIN 31.2 pg (27.0-33.0); MEAN CORPUSCULAR HGB CONC 32.9 g/dl (32.0-36.5); MEAN CORPUSCULAR VOLUME 94.7 fl (80.0-96.0); MONO # 0.7 10^3/uL (0.0-0.8); MONO % 11.1 % (2.0-8.0); NEUTROPHILS # 3.6 10^3/uL (1.5-8.5); NEUTROPHILS % 53.8 % (36.0-66.0); PLATELET COUNT, AUTOMATED 331 10^3/uL (150-450); RED BLOOD COUNT 5.07 10^6/uL (4.00-5.40); WHITE BLOOD COUNT 6.7 10^3/uL (4.0-10.0)
[2024-08-19 18:19] LABS: CALCIUM LEVEL 10.7 MG/DL (8.3-10.6); CREATININE FOR GFR 1.01 MG/DL (0.55-1.30); GLOMERULAR FILTRATION RATE 55.7 (>32); POTASSIUM SERUM 4.3 MMOL/L (3.5-5.1)
== END ==
LOC: M WUC 14:05
PROVIDERS: ATTEND Internal Medicine Cardiovascular Disease
DX: I48.11 Longstanding persistent atrial fibrillation (principal); I50.9 Heart failure, unspecified

== ENCOUNTER → 2024-08-31 | Outpatient (CLI) | payer MEDICARE ==
[2024-08-31 17:36] LABS: BASO # 0.1 10^3/uL (0.0-0.2); BASO % 0.9 % (0.0-1.0); EOS # 0.1 10^3/uL (0.0-0.5); EOS % 1.6 % (0.0-3.0); HEMATOCRIT 49.3 % (36.0-47.0); LYMPH # 1.9 10^3/uL (1.5-5.0); MEAN CORPUSCULAR HEMOGLOBIN 31.3 pg (27.0-33.0); MEAN CORPUSCULAR HGB CONC 32.5 g/dl (32.0-36.5); MEAN CORPUSCULAR VOLUME 96.3 fl (80.0-96.0); MONO # 0.7 10^3/uL (0.0-0.8); MONO % 9.4 % (2.0-8.0); NEUTROPHILS # 4.8 10^3/uL (1.5-8.5); NEUTROPHILS % 62.8 % (36.0-66.0); PLATELET COUNT, AUTOMATED 285 10^3/uL (150-450); RED BLOOD COUNT 5.12 10^6/uL (4.00-5.40); WHITE BLOOD COUNT 7.7 10^3/uL (4.0-10.0)
[2024-08-31 18:09] LABS: CALCIUM LEVEL 10.2 MG/DL (8.3-10.6); CREATININE FOR GFR 1.13 MG/DL (0.55-1.30); POTASSIUM SERUM 4.1 MMOL/L (3.5-5.1)
== END ==
LOC: M WUC 12:03
PROVIDERS: ATTEND Internal Medicine Cardiovascular Disease
DX: I48.11 Longstanding persistent atrial fibrillation (principal); I11.9 Hypertensive heart disease without heart failure; I50.9 Heart failure, unspecified

== ENCOUNTER → 2024-10-01 | Outpatient (CLI) | payer MEDICARE ==
[2024-10-01 16:55] LABS: BASO # 0.1 10^3/uL (0.0-0.2); BASO % 0.7 % (0.0-1.0); EOS # 0.1 10^3/uL (0.0-0.5); EOS % 0.9 % (0.0-3.0); HEMATOCRIT 42.8 % (36.0-47.0); HEMOGLOBIN 14.3 g/dl (12.0-15.5); LYMPH # 1.9 10^3/uL (1.5-5.0); LYMPH % 25.4 % (24.0-44.0); MEAN CORPUSCULAR HEMOGLOBIN 31.6 pg (27.0-33.0); MEAN CORPUSCULAR HGB CONC 33.4 g/dl (32.0-36.5); MEAN CORPUSCULAR VOLUME 94.7 fl (80.0-96.0); MONO # 0.7 10^3/uL (0.0-0.8); MONO % 8.8 % (2.0-8.0); NEUTROPHILS # 4.7 10^3/uL (1.5-8.5); NEUTROPHILS % 63.9 % (36.0-66.0); PLATELET COUNT, AUTOMATED 275 10^3/uL (150-450); RED BLOOD COUNT 4.52 10^6/uL (4.00-5.40); WHITE BLOOD COUNT 7.4 10^3/uL (4.0-10.0)
[2024-10-01 17:17] LABS: BLOOD UREA NITROGEN 23 MG/DL (9-23); CALCIUM LEVEL 9.8 MG/DL (8.3-10.6); CARBON DIOXIDE LEVEL 28 MMOL/L (20-31); CHLORIDE LEVEL 106 MMOL/L (98-107); CREATININE FOR GFR 0.92 MG/DL (0.55-1.30); GLOMERULAR FILTRATION RATE > 60.0 (>32); GLUCOSE, FASTING 117 MG/DL (74-106); POTASSIUM SERUM 3.6 MMOL/L (3.5-5.1); SODIUM LEVEL 139 MMOL/L (136-145)
== END ==
LOC: M WUC 14:55
PROVIDERS: ATTEND Internal Medicine Cardiovascular Disease
DX: I11.0 Hypertensive heart disease with heart failure (principal); I48.11 Longstanding persistent atrial fibrillation; I50.9 Heart failure, unspecified

== ENCOUNTER → 2024-10-27 | Outpatient (CLI) | payer MEDICARE ==
[2024-10-27 12:14] LABS: BASO # 0.1 10^3/uL (0.0-0.2); BASO % 0.7 % (0.0-1.0); EOS # 0.1 10^3/uL (0.0-0.5); EOS % 1.5 % (0.0-3.0); HEMATOCRIT 46.4 % (36.0-47.0); HEMOGLOBIN 15.4 g/dl (12.0-15.5); LYMPH # 1.7 10^3/uL (1.5-5.0); LYMPH % 20.3 % (24.0-44.0); MEAN CORPUSCULAR HEMOGLOBIN 31.8 pg (27.0-33.0); MEAN CORPUSCULAR HGB CONC 33.2 g/dl (32.0-36.5); MEAN CORPUSCULAR VOLUME 95.7 fl (80.0-96.0); MONO # 0.7 10^3/uL (0.0-0.8); MONO % 7.9 % (2.0-8.0); NEUTROPHILS # 5.7 10^3/uL (1.5-8.5); NEUTROPHILS % 69.4 % (36.0-66.0); PLATELET COUNT, AUTOMATED 319 10^3/uL (150-450); RED BLOOD COUNT 4.85 10^6/uL (4.00-5.40); WHITE BLOOD COUNT 8.2 10^3/uL (4.0-10.0)
[2024-10-27 12:43] LABS: ALBUMIN 3.8 G/DL (3.2-5.2); BILIRUBIN,TOTAL 0.6 MG/DL (0.3-1.2); CALCIUM LEVEL 10.1 MG/DL (8.3-10.6); CREATININE FOR GFR 0.98 MG/DL (0.55-1.30); GLOMERULAR FILTRATION RATE 57.7 (>32); POTASSIUM SERUM 4.2 MMOL/L (3.5-5.1)
== END ==
LOC: M WUC 09:56
PROVIDERS: ATTEND Nurse Practitioner Family
DX: K62.5 Hemorrhage of anus and rectum (principal)

== ENCOUNTER → 2025-04-09 | Outpatient (CLI) | payer MEDICARE ==
[2025-04-09 13:21] LABS: ALBUMIN 3.8 G/DL (3.2-5.2); BILIRUBIN,TOTAL 0.7 MG/DL (0.3-1.2); CALCIUM LEVEL 9.7 MG/DL (8.3-10.6); CREATININE FOR GFR 1.13 MG/DL (0.55-1.30); MAGNESIUM LEVEL 2.1 MG/DL (1.8-2.4); TOTAL PROTEIN 6.5 G/DL (5.7-8.2)
== END ==
LOC: M WUC 11:09
PROVIDERS: ATTEND Internal Medicine Cardiovascular Disease
DX: I11.9 Hypertensive heart disease without heart failure (principal); I44.7 Left bundle-branch block, unspecified; I48.11 Longstanding persistent atrial fibrillation; I50.9 Heart failure, unspecified; I48.91 Unspecified atrial fibrillation

== ENCOUNTER → 2025-10-04 | Outpatient (CLI) | payer MEDICARE ==
[2025-10-04 14:08] LABS: PLATELET COUNT, AUTOMATED 313 10^3/uL (150-450)
[2025-10-04 14:31] LABS: ESTIMATED AVERAGE GLUCOSE 137.0 MG/DL (60-110)
[2025-10-04 14:42] LABS: ALT/SGPT 16.0 U/L (7.0-40); AST/SGOT 18.0 U/L (<34); CALCIUM LEVEL 9.7 MG/DL (8.3-10.6); CARBON DIOXIDE LEVEL 29.0 MMOL/L (20-31); CHLORIDE LEVEL 104.0 MMOL/L (98-107); CHOLESTEROL LEVEL 147.0 MG/DL (<200); CHOLESTEROL RISK RATIO 2.87 (<5); CREATININE FOR GFR 1.29 MG/DL (0.55-1.30); GLOMERULAR FILTRATION RATE 40.9 (>32); LDL CHOLESTEROL 72.7 MG/DL (<100); NON-HDL-C 95.9 MG/DL; POTASSIUM SERUM 3.8 MMOL/L (3.5-5.1); SODIUM LEVEL 144.0 MMOL/L (136-145); TRIGLYCERIDES LEVEL 116.0 MG/DL (<150)
[2025-10-04 14:44] LABS: TOTAL 25(OH) VITAMIN D 39.2 NG/ML (20.0-100.0)
== END ==
LOC: M PLALAB 12:00
PROVIDERS: ATTEND Family Medicine
DX: K62.5 Hemorrhage of anus and rectum (principal); M81.0 Age-related osteoporosis without current pathological fracture; R73.01 Impaired fasting glucose; E78.019 Familial hypercholesterolemia, unspecified